=== PATIENT | male | born 1960 | race Caucasian/White ===

== ENCOUNTER 2019-05-26 19:30 | Inpatient (IN) | payer SELFPAY ==
[~2019-05-26] VITALS: Ht 170.2 cm; Wt 68.2 kg
[2019-05-26 19:54] LABS: GLUCOSE,POINT OF CARE 189 MG/DL (70-110)
[2019-05-27 00:56] LABS: APPEARANCE,URINE CLEAR (CLEAR); BILIRUBIN,URINE NEGATIVE (NEGATIVE); GLUCOSE, URINE (UA) >=1000 mg/dL (NEGATIVE); KETONES,URINE 15 mg/dL (NEGATIVE); LEUKOCYTE ESTERASE ,URINE NEGATIVE (NEGATIVE); NITRATE,URINE NEGATIVE (NEGATIVE); OCCULT BLOOD,URINE NEGATIVE (NEGATIVE); PH,URINE 5.5 (5.0-8.0); PROTEIN,URINE NEGATIVE (NEGATIVE); UROBILINOGEN,URINE 0.2 mg/dL (<=1.0)
[2019-05-27 01:03] LABS: BACTERIA,URINE None Seen /HPF (None Seen); RBC,URINE 0-2 /HPF (0-2); SQUAMOUS EPITHELIAL CELL,UR Rare /LPF (None Seen); WBC,URINE 0-2 /HPF (0-5)
[2019-05-27] MEDS ORDERED: ACETAMINOPHEN 500 MG TABLET PO ONE (01:15)
[2019-05-27 01:33] LABS: BASOPHILS % (AUTO) 0.9 % (0.0-2.0); EOSINOPHILS % (AUTO) 0.2 % (1.0-6.0); HEMATOCRIT 39.6 % (41-53); HEMOGLOBIN 13.6 g/dL (13.5-17.5); LYMPHOCYTES # (AUTO) 1.4 K/uL (1.0-4.8); LYMPHOCYTES % (AUTO) 28.8 % (22.0-44.0); MEAN CORPUSCULAR HEMOGLOBIN 29.2 pg (26.0-34.0); MEAN CORPUSCULAR HGB CONC 34.4 G/dL (31.0-37.0); MEAN CORPUSCULAR VOLUME 85 fL (80-100); MONOCYTES # (AUTO) 0.8 K/uL (0.1-1.0); MONOCYTES % (AUTO) 15.6 % (2.0-9.0); NEUTROPHILS # (AUTO) 2.7 K/uL (1.8-7.7); NEUTROPHILS % (AUTO) 54.5 % (40.0-70.0); PLATELET COUNT (AUTO) 245 K/uL (150-450); RED BLOOD CELL COUNT(AUTO) 4.66 MIL/uL (4.50-5.90); RED CELL DISTRIBUTION WIDTH 13.7 % (11.5-14.5)
[2019-05-27] MEDS ORDERED: IOVERSOL 350 MG/ML 100 ML VIAL ONE (01:38)
[2019-05-27] MEDS ORDERED: SODIUM CHLORIDE 0.9% 100 ML ONE (01:38)
[2019-05-27 01:42] LABS: ANION GAP 8 mmol/L (8-16); CALCIUM, TOTAL 8.7 mg/dL (8.8-10.5); CARBON DIOXIDE 27 mmol/L (22-29); CHLORIDE 98 mmol/L (98-107); CREATININE 0.82 mg/dL (0.60-1.30); GLOMERULAR FILTR. RATE CALC > 60 mL/min (>60); GLUCOSE,RANDOM 156 mg/dL (70-110); POTASSIUM 3.4 mmol/L (3.5-5.1); SODIUM SERUM 133 mmol/L (136-145); UREA NITROGEN, BLOOD 14 mg/dL (7-18)
[2019-05-27] MEDS ORDERED: ONDANSETRON HCL 4 MG/2 ML VIAL IVP ONE (01:45)
[2019-05-27] MEDS ORDERED: SODIUM CHLORIDE 0.9% 1,000 ML IV ONE (01:45)
[2019-05-27 02:10] LABS: ALANINE AMINOTRANSFERASE 31 U/L (12-78); ALBUMIN 3.4 g/dL (3.4-5.0); ALKALINE PHOSPHATASE 106 U/L (46-116); ASPARTATE AMINOTRANSFERASE 27 U/L (15-37); BILIRUBIN,TOTAL 0.5 mg/dL (0.1-1.0); CREATINE KINASE, TOTAL ONLY 156 U/L (39-308); TOTAL PROTEIN, SERUM 6.8 g/dL (6.4-8.2)
[2019-05-27] MEDS ORDERED: MetroNIDAZOLE 500 MG/NACL 100 ML IV ONE (03:30)
[2019-05-27] MEDS ORDERED: CefTRIAXone 1 GM/DEXTROSE 50 ML IV ONE (03:30)
[2019-05-27] MEDS ORDERED: 0.9% SODIUM CHLORIDE 10 ML SYRINGE IVP PRN (04:15)
[2019-05-27] MEDS ORDERED: ONDANSETRON HCL 4 MG/2 ML VIAL IVP PRN ×2 (04:15→19:30)
[2019-05-27] MEDS ORDERED: ACETAMINOPHEN 325 MG TABLET PO PRN (04:15)
[2019-05-27 10:30] LABS: GLUCOSE,POINT OF CARE 118 MG/DL (70-110)
[2019-05-27] MEDS ORDERED: GABA-533 PO (14:14)
[2019-05-27] MEDS ORDERED: LORazepam 2 MG TABLET PO ONE (14:15)
[2019-05-27] MEDS ORDERED: GABAPENTIN 400 MG CAPSULE PO ONE (14:30)
[2019-05-27] MEDS ORDERED: QUET25TA PO (14:32)
[2019-05-27 17:59] VITALS: BP 125/79
[2019-05-27] MEDS ORDERED: INFLUENZA VIRUS VACCINE QVS 2019-20 (3YR+)/PF 60 MCG/0.5 ML SYRINGE IM ONE (19:00)
[2019-05-27] MEDS ORDERED: PNEUMOCOCCAL VACCINE POLYVALENT 0.5 ML VIAL [PPSV23] IM ONE (19:00)
[2019-05-27] MEDS ORDERED: DEXTROSE 5%-0.45% SODIUM CHL 1,000 ML IV SCH (19:30)
[2019-05-27 19:50] VITALS: BP 132/88
[2019-05-27] MEDS: MetroNIDAZOLE 500 MG/NACL 100 ML IV SCH (20:47)
[2019-05-27 23:15] VITALS: BP 121/63
[2019-05-28] MEDS: MORPHINE SULFATE 2 MG/ML SYRINGE IVP PRN ×5 (00:02→19:54)
[2019-05-28 00:41] LABS: AMPHET/METH SCREEN,URINE POSITIVE (NEGATIVE); BARBITURATE SCREEN, URINE NEGATIVE (NEGATIVE); BENZODIAZEPINES SCREEN,URINE NEGATIVE (NEGATIVE); CANNABINOID SCREEN,URINE POSITIVE (NEGATIVE); COCAINE SCREEN,URINE NEGATIVE (NEGATIVE); METHADONE SCREEN, URINE NEGATIVE (NEGATIVE); OPIATE SCREEN,URINE NEGATIVE (NEGATIVE)
[2019-05-28 00:42] LABS: PHENCYCLIDINE SCREEN,URINE NEGATIVE (NEGATIVE)
[2019-05-28] MEDS: LORazepam 2 MG/ML VIAL IVP PRN (02:33)
[2019-05-28] MEDS: MetroNIDAZOLE 500 MG/NACL 100 ML IV SCH ×2 (03:42→11:10)
[2019-05-28 05:00] VITALS: BP 124/80
[2019-05-28 05:44] LABS: GLUCOMETER DEV NAME(LOC) 4E.2; GLUCOSE,POINT OF CARE 141 MG/DL (70-110)
[2019-05-28] MEDS ORDERED: CefTRIAXone 1 GM/DEXTROSE 50 ML IV SCH (06:00)
[2019-05-28 06:27] LABS: EOSINOPHILS % (AUTO) 1.2 % (1.0-6.0); HEMATOCRIT 38.5 % (41-53); HEMOGLOBIN 13.3 g/dL (13.5-17.5); LYMPHOCYTES # (AUTO) 2.7 K/uL (1.0-4.8); MEAN CORPUSCULAR HEMOGLOBIN 29.6 pg (26.0-34.0); MEAN CORPUSCULAR HGB CONC 34.5 G/dL (31.0-37.0); MEAN CORPUSCULAR VOLUME 86 fL (80-100); MONOCYTES # (AUTO) 0.6 K/uL (0.1-1.0); MONOCYTES % (AUTO) 12.4 % (2.0-9.0); NEUTROPHILS # (AUTO) 1.4 K/uL (1.8-7.7); NEUTROPHILS % (AUTO) 29.4 % (40.0-70.0); RED BLOOD CELL COUNT(AUTO) 4.48 MIL/uL (4.50-5.90); RED CELL DISTRIBUTION WIDTH 13.7 % (11.5-14.5)
[2019-05-28 06:37] LABS: ALANINE AMINOTRANSFERASE 23 U/L (12-78); ALKALINE PHOSPHATASE 83 U/L (46-116); ANION GAP 4 mmol/L (8-16); ASPARTATE AMINOTRANSFERASE 23 U/L (15-37); BILIRUBIN,TOTAL 0.3 mg/dL (0.1-1.0); CALCIUM, TOTAL 8.5 mg/dL (8.8-10.5); CARBON DIOXIDE 29 mmol/L (22-29); CHLORIDE 104 mmol/L (98-107); CREATININE 0.77 mg/dL (0.60-1.30); GLOMERULAR FILTR. RATE CALC > 60 mL/min (>60); GLUCOSE,RANDOM 153 mg/dL (70-110); POTASSIUM 3.7 mmol/L (3.5-5.1); SODIUM SERUM 137 mmol/L (136-145); UREA NITROGEN, BLOOD 4 mg/dL (7-18)
[2019-05-28 06:55] LABS: PLATELET COUNT (AUTO) 193 K/uL (150-450)
[2019-05-28 08:00] VITALS: BP 124/84
[2019-05-28 09:04] VITALS: BP 110/56
[2019-05-28] MEDS ORDERED: RINGERS SOLUTION,LACTATED 1,000 ML IV ONE ×3 (09:59→13:53)
[2019-05-28] MEDS ORDERED: BUPIVACAINE 0.25%/EPI 1:200,000/PF 10 ML VIAL ONE (11:22)
[2019-05-28] MEDS ORDERED: IPRATROPIUM BROMIDE 0.5 MG/2.5 ML NEB SOLUTION NEB PRN (11:45)
[2019-05-28] MEDS ORDERED: ALBUTEROL SULFATE 2.5 MG/0.5 ML NEB SOLUTION NEB PRN (11:45)
[2019-05-28] MEDS ORDERED: BISACODYL 10 MG RECTAL RECTAL SUPPOSITORY PR PRN (11:45)
[2019-05-28] MEDS ORDERED: ONDANSETRON HCL 4 MG/2 ML VIAL IVP PRN (11:45)
[2019-05-28] MEDS ORDERED: ZOLPIDEM TARTRATE 5 MG TABLET PO PRN (11:45)
[2019-05-28] MEDS ORDERED: ACETAMINOPHEN 325 MG TABLET PO PRN (11:45)
[2019-05-28] MEDS ORDERED: MAGNESIUM HYDROXIDE SUSPENSION 30 ML UDCUP PO PRN (11:45)
[2019-05-28 12:31] LABS: HEMOGLOBIN A1C 9.3 % (4.5-6.2)
[2019-05-28] MEDS ORDERED: HYDROCODONE/ACETAMINOPHEN 5-325 MG TABLET PO PRN (15:00)
[2019-05-28 15:47] VITALS: BP 141/87
[2019-05-28] MEDS: IBUPROFEN 600 MG TABLET PO SCH (15:56)
[2019-05-28] MEDS: HEPARIN SODIUM,PORCINE 5,000 UNITS/ML VIAL SQ SCH ×2 (16:06→23:35)
[2019-05-28] MEDS: GABAPENTIN 400 MG CAPSULE PO SCH ×2 (16:07→23:35)
[2019-05-28 19:22] VITALS: BP 107/60
[2019-05-28 23:30] VITALS: BP 106/60
[2019-05-28] MEDS: DOCUSATE SODIUM 100 MG CAPSULE PO SCH (23:35)
[2019-05-29] MEDS: GABAPENTIN 400 MG CAPSULE PO SCH ×2 (00:05→15:41)
[2019-05-29] MEDS: LORazepam 2 MG/ML VIAL IVP PRN (00:05)
[2019-05-29] MEDS ORDERED: FentaNYL CITRATE-PF 100 MCG/2 ML VIAL IVP ONE (01:10)
[2019-05-29] MEDS ORDERED: MIDAZOLAM HCL 2 MG/2 ML VIAL IVP ONE (01:10)
[2019-05-29] MEDS ORDERED: KETOROLAC TROMETHAMINE 60 MG/2 ML VIAL IM ONE (01:10)
[2019-05-29] MEDS ORDERED: LIDOCAINE 1% 10 ML VIAL IM ONE (01:10)
[2019-05-29] MEDS ORDERED: 0.9% SODIUM CHLORIDE 10 ML VIAL IVP ONE (01:10)
[2019-05-29] MEDS ORDERED: ONDANSETRON HCL 4 MG/2 ML VIAL IVP ONE (01:10)
[2019-05-29] MEDS ORDERED: PROPOFOL 1% 20 ML VIAL IVP ONE (01:10)
[2019-05-29] MEDS ORDERED: SUCCINYLCHOLINE CHLORIDE 20 MG/ML 10 ML VIAL IVP ONE (01:10)
[2019-05-29] MEDS ORDERED: HYDROmorphone 2 MG/ML SYRINGE IVP ONE (01:10)
[2019-05-29] MEDS ORDERED: EPHEDrine SULFATE 50 MG/ML VIAL IM ONE (01:10)
[2019-05-29 03:52] LABS: GLUCOMETER DEV NAME(LOC) 4E.2; GLUCOSE,POINT OF CARE 180 MG/DL (70-110)
[2019-05-29 06:40] VITALS: BP 143/82
[2019-05-29] MEDS: MORPHINE SULFATE 2 MG/ML SYRINGE IVP PRN (06:40)
[2019-05-29 08:18] VITALS: BP 134/74
[2019-05-29] MEDS: DOCUSATE SODIUM 100 MG CAPSULE PO SCH (08:41)
[2019-05-29] MEDS ORDERED: QUEtiapine FUMARATE 100 MG TABLET PO SCH (09:00)
[2019-05-29] MEDS ORDERED: QUET100T33 PO (11:22)
[2019-05-29] MEDS ORDERED: IBUP-2070 PO (11:22)
[2019-05-29] MEDS ORDERED: DOCU-275 PO (11:22)
[2019-05-29] MEDS ORDERED: METF-960 PO (11:22)
[2019-05-29] MEDS ORDERED: GABA-533 PO (11:22)
[2019-05-29] MEDS ORDERED: HYDR-4061 PO (11:22)
[2019-05-29] MEDS: HEPARIN SODIUM,PORCINE 5,000 UNITS/ML VIAL SQ SCH ×2 (12:20→15:41)
[2019-05-29] MEDS: IBUPROFEN 600 MG TABLET PO SCH ×2 (14:35→18:06)
[2019-05-29 20:34] LABS: GLUCOMETER DEV NAME(LOC) 4E.2; GLUCOSE,POINT OF CARE 183 MG/DL (70-110)
[2019-05-29 20:35] LABS: GLUCOMETER DEV NAME(LOC) 4E.2; GLUCOSE,POINT OF CARE 235 MG/DL (70-110)
[2019-05-30 06:00] LABS: GLUCOMETER DEV NAME(LOC) 6N.2; GLUCOSE,POINT OF CARE 259 MG/DL (70-110)
== END 2019-05-29 18:30 | disposition other institution (70) | DRG 351 ==
LOC: EMS 19:31 → 6N 05-27 17:30
PROVIDERS: ADMIT Hospitalist; ATTEND Hospitalist
PROC: 0YU50JZ Supplement Right Inguinal Region with Synthetic Substitute, Open Approach (ICD-10-PCS; principal; 2019-05-28 12:00)
DX: K40.30 Unilateral inguinal hernia, with obstruction, without gangrene, not specified as recurrent (principal); K56.600 Partial intestinal obstruction, unspecified as to cause; D64.9 Anemia, unspecified; E11.9 Type 2 diabetes mellitus without complications; F15.10 Other stimulant abuse, uncomplicated; F25.9 Schizoaffective disorder, unspecified; G89.29 Other chronic pain; F17.210 Nicotine dependence, cigarettes, uncomplicated; F12.90 Cannabis use, unspecified, uncomplicated; F32.9 Major depressive disorder, single episode, unspecified; F41.9 Anxiety disorder, unspecified; R63.0 Anorexia; R45.1 Restlessness and agitation; I10 Essential (primary) hypertension; K52.9 Noninfective gastroenteritis and colitis, unspecified; Z59.0 Homelessness; Z79.899 Other long term (current) drug therapy; Z68.23 Body mass index [BMI] 23.0-23.9, adult; Z88.8 Allergy status to other drugs, medicaments and biological substances
CPT/HCPCS: 74177; 83036; 83605; 83735; 87040; 87081; 88302; J0330; J0696; J1170; J1644; J1885; J2060; J2250; J2270; J2405; J2704; J3010; J3490; J7030; J7050; J7120

== ENCOUNTER 2019-11-24 15:25 | Inpatient (IN) | payer MEDICAID ==
[~2019-11-24] VITALS: Ht 172.7 cm; Wt 72.7 kg
[~2019-11-24 15:25] MED LIST: DOCU-275 PO; GABA-1201 PO; GABA-533 PO; IBUP-2070 PO; METF-960 PO; QUET100T33 PO; QUET25TA PO
[2019-11-24] MEDS ORDERED: ZIPRASIDONE MESYLATE 20 MG/VIAL IM ONE (16:30)
[2019-11-24] MEDS ORDERED: LORazepam 2 MG/ML VIAL IM ONE ×2 (16:30→18:30)
[2019-11-24] MEDS ORDERED: DiphenhydrAMINE HCL 50 MG/ML VIAL IM ONE (16:30)
[2019-11-24] MEDS: LORazepam 2 MG/ML VIAL IM ONE ×2 (16:42→17:06)
[2019-11-24] MEDS: DiphenhydrAMINE HCL 50 MG/ML VIAL IM ONE ×2 (16:43→17:06)
[2019-11-24 18:27] LABS: BASOPHILS % (AUTO) 0.9 % (0.0-2.0); EOSINOPHILS % (AUTO) 0.2 % (1.0-6.0); HEMATOCRIT 50.3 % (41-53); HEMOGLOBIN 16.8 g/dL (13.5-17.5); LYMPHOCYTES # (AUTO) 3.3 K/uL (1.0-4.8); LYMPHOCYTES % (AUTO) 38.7 % (22.0-44.0); MEAN CORPUSCULAR HEMOGLOBIN 28.3 pg (26.0-34.0); MEAN CORPUSCULAR HGB CONC 33.4 G/dL (31.0-37.0); MEAN CORPUSCULAR VOLUME 85 fL (80-100); MONOCYTES # (AUTO) 0.4 K/uL (0.1-1.0); MONOCYTES % (AUTO) 4.6 % (2.0-9.0); NEUTROPHILS # (AUTO) 4.8 K/uL (1.8-7.7); NEUTROPHILS % (AUTO) 55.6 % (40.0-70.0); PLATELET COUNT (AUTO) 322 K/uL (150-450); RED BLOOD CELL COUNT(AUTO) 5.93 MIL/uL (4.50-5.90)
[2019-11-24 18:41] LABS: ALKALINE PHOSPHATASE 128 U/L (46-116); ANION GAP 20 mmol/L (8-16); BILIRUBIN,TOTAL 0.3 mg/dL (0.1-1.0); CALCIUM, TOTAL 9.4 mg/dL (8.8-10.5); CARBON DIOXIDE 20 mmol/L (22-29); CHLORIDE 100 mmol/L (98-107); CREATININE 1.03 mg/dL (0.60-1.30); GLOMERULAR FILTR. RATE CALC > 60 mL/min (>60); POTASSIUM 3.3 mmol/L (3.5-5.1); SODIUM SERUM 140 mmol/L (136-145); UREA NITROGEN, BLOOD 12 mg/dL (7-18)
[2019-11-24 18:42] LABS: ALANINE AMINOTRANSFERASE 33 U/L (12-78); ALBUMIN 3.9 g/dL (3.4-5.0); ASPARTATE AMINOTRANSFERASE 26 U/L (15-37)
[2019-11-24 18:46] LABS: GLUCOSE,RANDOM 433 mg/dL (70-110)
[2019-11-24] MEDS ORDERED: ChlorproMAZINE HCL 25 MG/ML 2 ML AMP IM ONE (19:15)
[2019-11-24] MEDS ORDERED: SODIUM CHLORIDE 0.45% 1,000 ML IV PRN (19:56)
[2019-11-24] MEDS ORDERED: POTASSIUM CHL 20 MEQ/0.45% NS 1,000 ML IV PRN (19:56)
[2019-11-24] MEDS ORDERED: DEXTROSE 5%-0.45% SODIUM CHL 1,000 ML IV PRN (19:56)
[2019-11-24] MEDS ORDERED: SODIUM CHLORIDE 0.9% 1,000 ML IV SCH (19:56)
[2019-11-24] MEDS ORDERED: INSULIN REGULAR, HUMAN 100 UNITS in SODIUM CHLORIDE 0.9% 99 ML IV PRN ×2 (19:56)
[2019-11-24] MEDS ORDERED: POTASSIUM CHLORIDE 40 MEQ in SODIUM CHLORIDE 0.45% 1,000 ML IV PRN (19:56)
[2019-11-24] MEDS ORDERED: DEXTROSE 50%-WATER 25 GM/50 ML SYRINGE IVP PRN (20:00)
[2019-11-24] MEDS ORDERED: SODIUM CHLORIDE 0.9% 2,000 ML IV ONE (20:00)
[2019-11-24] MEDS ORDERED: INSULIN REGULAR, HUMAN 100 UNITS/ML IVP ONE (20:00)
[2019-11-24] MEDS ORDERED: INSULIN REGULAR, HUMAN 100 UNITS/ML IVP PRN (20:00)
[2019-11-24 20:46] LABS: GLUCOSE,POINT OF CARE 332 MG/DL (70-110)
[2019-11-24 21:24] LABS: AMPHET/METH SCREEN,URINE NEGATIVE (NEGATIVE); BARBITURATE SCREEN, URINE NEGATIVE (NEGATIVE); BENZODIAZEPINES SCREEN,URINE POSITIVE (NEGATIVE); CANNABINOID SCREEN,URINE POSITIVE (NEGATIVE); COCAINE SCREEN,URINE NEGATIVE (NEGATIVE); METHADONE SCREEN, URINE NEGATIVE (NEGATIVE); OPIATE SCREEN,URINE POSITIVE (NEGATIVE)
[2019-11-24 21:25] LABS: PHENCYCLIDINE SCREEN,URINE NEGATIVE (NEGATIVE)
[2019-11-24 21:55] LABS: ANION GAP 13 mmol/L (8-16); CALCIUM, TOTAL 9.2 mg/dL (8.8-10.5); CARBON DIOXIDE 25 mmol/L (22-29); CHLORIDE 102 mmol/L (98-107); GLOMERULAR FILTR. RATE CALC > 60 mL/min (>60); GLUCOSE,RANDOM 311 mg/dL (70-110); POTASSIUM 3.4 mmol/L (3.5-5.1); SODIUM SERUM 140 mmol/L (136-145); UREA NITROGEN, BLOOD 11 mg/dL (7-18)
[2019-11-24] MEDS ORDERED: ONDANSETRON HCL 4 MG/2 ML VIAL IVP PRN ×2 (22:15→23:45)
[2019-11-24] MEDS ORDERED: ACETAMINOPHEN 325 MG TABLET PO PRN ×2 (22:15→23:45)
[2019-11-24 22:16] LABS: LACTIC ACID 3.2 mmol/L (0.4-2.0)
[2019-11-24 22:19] LABS: CREATINE KINASE, TOTAL ONLY 827 U/L (39-308); LIPASE 60 U/L (73-393)
[2019-11-24 22:36] LABS: ACETONE,BLOOD NEGATIVE (NEGATIVE)
[2019-11-24 23:25] LABS: GLUCOSE,POINT OF CARE 280 MG/DL (70-110)
[2019-11-24] MEDS ORDERED: HYDROCODONE/ACETAMINOPHEN 5-325 MG TABLET PO PRN (23:45)
[2019-11-24] MEDS ORDERED: ZOLPIDEM TARTRATE 5 MG TABLET PO PRN (23:45)
[2019-11-24] MEDS ORDERED: MAGNESIUM HYDROXIDE SUSPENSION 30 ML UDCUP PO PRN (23:45)
[2019-11-24] MEDS ORDERED: IPRATROPIUM BROMIDE 0.5 MG/2.5 ML NEB SOLUTION NEB PRN (23:45)
[2019-11-24] MEDS ORDERED: ALBUTEROL SULFATE 2.5 MG/0.5 ML NEB SOLUTION NEB PRN (23:45)
[2019-11-24] MEDS ORDERED: MORPHINE SULFATE 2 MG/ML SYRINGE IVP PRN (23:45)
[2019-11-24] MEDS ORDERED: GABAPENTIN 400 MG CAPSULE PO SCH (23:45)
[2019-11-24] MEDS ORDERED: BISACODYL 10 MG RECTAL RECTAL SUPPOSITORY PR PRN (23:45)
[2019-11-25 00:51] LABS: GLUCOSE,POINT OF CARE 210 MG/DL (70-110)
[2019-11-25] MEDS ORDERED: SODIUM CHLORIDE 0.9% 1,000 ML IV ONE (01:02)
[2019-11-25 03:01] LABS: ANION GAP 10 mmol/L (8-16); CARBON DIOXIDE 25 mmol/L (22-29); CHLORIDE 110 mmol/L (98-107); CREATININE 0.91 mg/dL (0.60-1.30); GLOMERULAR FILTR. RATE CALC > 60 mL/min (>60); GLUCOSE,RANDOM 172 mg/dL (70-110); POTASSIUM 3.4 mmol/L (3.5-5.1); SODIUM SERUM 145 mmol/L (136-145); UREA NITROGEN, BLOOD 10 mg/dL (7-18)
[2019-11-25] MEDS ORDERED: DEXTROSE 50%-WATER 25 GM/50 ML SYRINGE IVP PRN (03:30)
[2019-11-25] MEDS: INSULIN LISPRO 100 UNITS/ML SQ PRN ×5 (03:43→21:14)
[2019-11-25 03:52] LABS: GLUCOSE,POINT OF CARE 174 MG/DL (70-110)
[2019-11-25 08:17] LABS: GLUCOSE,POINT OF CARE 256 MG/DL (70-110)
[2019-11-25] MEDS: HEPARIN SODIUM,PORCINE 5,000 UNITS/ML VIAL SQ SCH ×3 (08:19→17:39)
[2019-11-25] MEDS: IBUPROFEN 600 MG TABLET PO SCH ×4 (08:20→18:35)
[2019-11-25] MEDS ORDERED: DOCUSATE SODIUM 100 MG CAPSULE PO SCH (09:00)
[2019-11-25 09:03] VITALS: BP 151/95
[2019-11-25 10:08] LABS: ALANINE AMINOTRANSFERASE 32 U/L (12-78); ALBUMIN 3.1 g/dL (3.4-5.0); ALKALINE PHOSPHATASE 99 U/L (46-116); ANION GAP 9 mmol/L (8-16); ASPARTATE AMINOTRANSFERASE 45 U/L (15-37); BILIRUBIN,TOTAL 0.5 mg/dL (0.1-1.0); CALCIUM, TOTAL 8.2 mg/dL (8.8-10.5); CARBON DIOXIDE 26 mmol/L (22-29); CHLORIDE 108 mmol/L (98-107); CREATININE 0.88 mg/dL (0.60-1.30); GLOMERULAR FILTR. RATE CALC > 60 mL/min (>60); GLUCOSE,RANDOM 214 mg/dL (70-110); PHOSPHORUS 2.2 mg/dL (2.5-4.9); POTASSIUM 3.5 mmol/L (3.5-5.1); SODIUM SERUM 143 mmol/L (136-145); TOTAL PROTEIN, SERUM 6.1 g/dL (6.4-8.2); UREA NITROGEN, BLOOD 11 mg/dL (7-18)
[2019-11-25] MEDS: GABAPENTIN 400 MG CAPSULE PO SCH ×3 (10:19→17:39)
[2019-11-25] MEDS: QUEtiapine FUMARATE 100 MG TABLET PO SCH (10:19)
[2019-11-25] MEDS: QUEtiapine FUMARATE 25 MG TABLET PO SCH (10:20)
[2019-11-25] MEDS: DOCUSATE SODIUM 100 MG CAPSULE PO SCH ×2 (10:20→20:53)
[2019-11-25 11:36] VITALS: BP 144/95
[2019-11-25 15:18] LABS: ANION GAP 9 mmol/L (8-16); CALCIUM, TOTAL 8.4 mg/dL (8.8-10.5); CARBON DIOXIDE 25 mmol/L (22-29); CHLORIDE 107 mmol/L (98-107); CREATININE 0.89 mg/dL (0.60-1.30); GLOMERULAR FILTR. RATE CALC > 60 mL/min (>60); GLUCOSE,RANDOM 313 mg/dL (70-110); SODIUM SERUM 141 mmol/L (136-145); UREA NITROGEN, BLOOD 12 mg/dL (7-18)
[2019-11-25 15:22] VITALS: BP 139/86
[2019-11-25 19:29] LABS: ANION GAP 9 mmol/L (8-16); CALCIUM, TOTAL 8.4 mg/dL (8.8-10.5); CARBON DIOXIDE 26 mmol/L (22-29); CHLORIDE 106 mmol/L (98-107); CREATININE 0.95 mg/dL (0.60-1.30); GLOMERULAR FILTR. RATE CALC > 60 mL/min (>60); GLUCOSE,RANDOM 310 mg/dL (70-110); POTASSIUM 3.5 mmol/L (3.5-5.1); SODIUM SERUM 141 mmol/L (136-145); UREA NITROGEN, BLOOD 13 mg/dL (7-18)
[2019-11-25 21:10] VITALS: BP 143/80
[2019-11-26] MEDS: IBUPROFEN 600 MG TABLET PO SCH ×4 (00:44→17:14)
[2019-11-26] MEDS: GABAPENTIN 400 MG CAPSULE PO SCH ×3 (00:44→17:14)
[2019-11-26] MEDS: HEPARIN SODIUM,PORCINE 5,000 UNITS/ML VIAL SQ SCH ×3 (00:44→17:14)
[2019-11-26 00:52] VITALS: BP 125/84
[2019-11-26 04:01] VITALS: BP 120/75
[2019-11-26] MEDS: INSULIN LISPRO 100 UNITS/ML SQ PRN ×4 (06:19→21:06)
[2019-11-26 08:07] VITALS: BP 131/79
[2019-11-26] MEDS: QUEtiapine FUMARATE 100 MG TABLET PO SCH (08:11)
[2019-11-26] MEDS: QUEtiapine FUMARATE 25 MG TABLET PO SCH (08:11)
[2019-11-26] MEDS: DOCUSATE SODIUM 100 MG CAPSULE PO SCH ×2 (08:11→20:48)
[2019-11-26 08:30] LABS: ANION GAP 11 mmol/L (8-16); CALCIUM, TOTAL 8.3 mg/dL (8.8-10.5); CARBON DIOXIDE 24 mmol/L (22-29); CHLORIDE 102 mmol/L (98-107); CREATININE 0.91 mg/dL (0.60-1.30); GLOMERULAR FILTR. RATE CALC > 60 mL/min (>60); GLUCOSE,RANDOM 314 mg/dL (70-110); POTASSIUM 3.7 mmol/L (3.5-5.1); SODIUM SERUM 137 mmol/L (136-145); UREA NITROGEN, BLOOD 16 mg/dL (7-18)
[2019-11-26 10:21] LABS: ANION GAP 8 mmol/L (8-16); CALCIUM, TOTAL 8.1 mg/dL (8.8-10.5); CARBON DIOXIDE 26 mmol/L (22-29); CHLORIDE 104 mmol/L (98-107); CREATININE 0.92 mg/dL (0.60-1.30); GLOMERULAR FILTR. RATE CALC > 60 mL/min (>60); GLUCOSE,RANDOM 337 mg/dL (70-110); POTASSIUM 4.1 mmol/L (3.5-5.1); SODIUM SERUM 138 mmol/L (136-145); UREA NITROGEN, BLOOD 17 mg/dL (7-18)
[2019-11-26 12:38] VITALS: BP 168/90
[2019-11-26 12:41] LABS: GLUCOMETER DEV NAME(LOC) 5S.1; GLUCOSE,POINT OF CARE 290 MG/DL (70-110)
[2019-11-26 12:41] LABS: GLUCOMETER DEV NAME(LOC) 5S.1; GLUCOSE,POINT OF CARE 259 MG/DL (70-110)
[2019-11-26 12:41] LABS: GLUCOMETER DEV NAME(LOC) 5S.1; GLUCOSE,POINT OF CARE 191 MG/DL (70-110)
[2019-11-26 12:41] LABS: GLUCOMETER DEV NAME(LOC) 5S.1; GLUCOSE,POINT OF CARE 195 MG/DL (70-110)
[2019-11-26 14:09] LABS: ANION GAP 8 mmol/L (8-16); CARBON DIOXIDE 26 mmol/L (22-29); CHLORIDE 106 mmol/L (98-107); CREATININE 0.79 mg/dL (0.60-1.30); GLOMERULAR FILTR. RATE CALC > 60 mL/min (>60); GLUCOSE,RANDOM 311 mg/dL (70-110); POTASSIUM 4.2 mmol/L (3.5-5.1); SODIUM SERUM 140 mmol/L (136-145); UREA NITROGEN, BLOOD 14 mg/dL (7-18)
[2019-11-26 16:10] VITALS: BP 154/92
[2019-11-26 17:04] LABS: ANION GAP 8 mmol/L (8-16); CALCIUM, TOTAL 8.3 mg/dL (8.8-10.5); CARBON DIOXIDE 25 mmol/L (22-29); CHLORIDE 103 mmol/L (98-107); CREATININE 0.88 mg/dL (0.60-1.30); GLOMERULAR FILTR. RATE CALC > 60 mL/min (>60); GLUCOSE,RANDOM 164 mg/dL (70-110); POTASSIUM 3.9 mmol/L (3.5-5.1); SODIUM SERUM 136 mmol/L (136-145); UREA NITROGEN, BLOOD 17 mg/dL (7-18)
[2019-11-26 17:33] LABS: GLUCOMETER DEV NAME(LOC) 5S.2A; GLUCOSE,POINT OF CARE 207 MG/DL (70-110)
[2019-11-26 17:34] LABS: GLUCOMETER DEV NAME(LOC) 5S.2A; GLUCOSE,POINT OF CARE 154 MG/DL (70-110)
[2019-11-26 20:21] VITALS: BP 134/74
[2019-11-27 03:42] LABS: GLUCOMETER DEV NAME(LOC) 5S.1; GLUCOSE,POINT OF CARE 159 MG/DL (70-110)
[2019-11-27 04:06] VITALS: BP 157/93
[2019-11-27] MEDS: INSULIN LISPRO 100 UNITS/ML SQ PRN ×2 (06:12→14:10)
[2019-11-27] MEDS: IBUPROFEN 600 MG TABLET PO SCH ×4 (06:13→18:00)
[2019-11-27 07:58] LABS: ANION GAP 6 mmol/L (8-16); CALCIUM, TOTAL 8.2 mg/dL (8.8-10.5); CARBON DIOXIDE 28 mmol/L (22-29); CHLORIDE 106 mmol/L (98-107); CREATININE 0.77 mg/dL (0.60-1.30); GLOMERULAR FILTR. RATE CALC > 60 mL/min (>60); GLUCOSE,RANDOM 238 mg/dL (70-110); POTASSIUM 4.2 mmol/L (3.5-5.1); SODIUM SERUM 140 mmol/L (136-145); UREA NITROGEN, BLOOD 18 mg/dL (7-18)
[2019-11-27 08:28] VITALS: BP 157/88
[2019-11-27] MEDS: DOCUSATE SODIUM 100 MG CAPSULE PO SCH (09:00)
[2019-11-27 09:08] LABS: GLUCOMETER DEV NAME(LOC) 5S.1; GLUCOSE,POINT OF CARE 244 MG/DL (70-110)
[2019-11-27] MEDS: QUEtiapine FUMARATE 25 MG TABLET PO SCH (09:24)
[2019-11-27] MEDS: GABAPENTIN 400 MG CAPSULE PO SCH ×3 (09:24→17:06)
[2019-11-27] MEDS: HEPARIN SODIUM,PORCINE 5,000 UNITS/ML VIAL SQ SCH ×3 (09:24→16:00)
[2019-11-27] MEDS: QUEtiapine FUMARATE 100 MG TABLET PO SCH (09:24)
[2019-11-27 11:28] VITALS: BP 172/92
[2019-11-27 12:39] LABS: GLUCOMETER DEV NAME(LOC) 5S.1; GLUCOSE,POINT OF CARE 274 MG/DL (70-110)
[2019-11-27 16:37] VITALS: BP 139/81
[2019-11-27 20:10] VITALS: BP 137/74
== END 2019-11-27 21:40 | disposition left against medical advice (07) | DRG 420 ==
LOC: EMS 15:26 → 5N 23:41
PROVIDERS: ADMIT Hospitalist; ATTEND Hospitalist
DX: E11.10 Type 2 diabetes mellitus with ketoacidosis without coma (principal); G93.40 Encephalopathy, unspecified; R45.851 Suicidal ideations; E87.6 Hypokalemia; F15.90 Other stimulant use, unspecified, uncomplicated; F19.10 Other psychoactive substance abuse, uncomplicated; F41.9 Anxiety disorder, unspecified; F32.9 Major depressive disorder, single episode, unspecified; I10 Essential (primary) hypertension; F12.90 Cannabis use, unspecified, uncomplicated; Z88.8 Allergy status to other drugs, medicaments and biological substances; F17.210 Nicotine dependence, cigarettes, uncomplicated; S61.512A Laceration without foreign body of left wrist, initial encounter; S61.511A Laceration without foreign body of right wrist, initial encounter; X58.XXXA Exposure to other specified factors, initial encounter; Y93.89 Activity, other specified; Y92.89 Other specified places as the place of occurrence of the external cause; Y99.8 Other external cause status; Z53.29 Procedure and treatment not carried out because of patient's decision for other reasons
CPT/HCPCS: 70450; 83605; 83735; 84100; 93005; 99291; G0480; J1200; J1644; J1815; J2060; J3230; J3486; J7030; J7050

== ENCOUNTER 2020-01-05 11:02 | Inpatient (IN) | payer MEDICAID ==
[~2020-01-05] VITALS: Ht 170.2 cm; Wt 88.2 kg
[2020-01-05 12:18] LABS: GLUCOSE,POINT OF CARE 247 MG/DL (70-110)
[2020-01-05 12:25] LABS: BASOPHILS % (AUTO) 1.2 % (0.0-2.0); EOSINOPHILS % (AUTO) 1.2 % (1.0-6.0); HEMATOCRIT 46.4 % (41-53); HEMOGLOBIN 15.1 g/dL (13.5-17.5); LYMPHOCYTES # (AUTO) 2.6 K/uL (1.0-4.8); MEAN CORPUSCULAR HEMOGLOBIN 28.4 pg (26.0-34.0); MEAN CORPUSCULAR HGB CONC 32.6 G/dL (31.0-37.0); MEAN CORPUSCULAR VOLUME 87 fL (80-100); MONOCYTES # (AUTO) 0.4 K/uL (0.1-1.0); MONOCYTES % (AUTO) 6.2 % (2.0-9.0); NEUTROPHILS # (AUTO) 3.2 K/uL (1.8-7.7); NEUTROPHILS % (AUTO) 50.4 % (40.0-70.0); PLATELET COUNT (AUTO) 279 K/uL (150-450); RED BLOOD CELL COUNT(AUTO) 5.33 MIL/uL (4.50-5.90); RED CELL DISTRIBUTION WIDTH 14.6 % (11.5-14.5)
[2020-01-05 13:30] LABS: AMPHET/METH SCREEN,URINE NEGATIVE (NEGATIVE); BARBITURATE SCREEN, URINE NEGATIVE (NEGATIVE); BENZODIAZEPINES SCREEN,URINE NEGATIVE (NEGATIVE); CANNABINOID SCREEN,URINE POSITIVE (NEGATIVE); COCAINE SCREEN,URINE POSITIVE (NEGATIVE); METHADONE SCREEN, URINE NEGATIVE (NEGATIVE); OPIATE SCREEN,URINE POSITIVE (NEGATIVE)
[2020-01-05 13:31] LABS: PHENCYCLIDINE SCREEN,URINE NEGATIVE (NEGATIVE)
[2020-01-05 13:41] LABS: ANION GAP 9 mmol/L (8-16); CALCIUM, TOTAL 9.1 mg/dL (8.8-10.5); CARBON DIOXIDE 27 mmol/L (22-29); CHLORIDE 97 mmol/L (98-107); CREATININE 1.06 mg/dL (0.60-1.30); GLOMERULAR FILTR. RATE CALC > 60 mL/min (>60); GLUCOSE,RANDOM 271 mg/dL (70-110); POTASSIUM 3.8 mmol/L (3.5-5.1); SODIUM SERUM 133 mmol/L (136-145); UREA NITROGEN, BLOOD 16 mg/dL (7-18)
[2020-01-05 13:47] LABS: ALANINE AMINOTRANSFERASE 37 U/L (12-78); ALBUMIN 3.7 g/dL (3.4-5.0); ALKALINE PHOSPHATASE 99 U/L (46-116); ASPARTATE AMINOTRANSFERASE 21 U/L (15-37); BILIRUBIN,TOTAL 0.3 mg/dL (0.1-1.0); TOTAL PROTEIN, SERUM 7.2 g/dL (6.4-8.2)
[2020-01-05] MEDS: LORazepam 2 MG TABLET PO PRN (20:16)
[2020-01-05 20:29] VITALS: BP 148/81
[2020-01-06] MEDS ORDERED: MetFORMIN HCL 500 MG TABLET PO SCH (07:30)
[2020-01-06] MEDS ORDERED: MAGNESIUM HYDROXIDE SUSPENSION 30 ML UDCUP PO PRN (09:30)
[2020-01-06] MEDS ORDERED: DOCUSATE SODIUM 100 MG CAPSULE PO PRN (09:30)
[2020-01-06] MEDS ORDERED: ONDANSETRON HCL 4 MG TABLET PO PRN (09:30)
[2020-01-06] MEDS ORDERED: PETROLATUM,WHITE 28 GM JELLY TP PRN (09:30)
[2020-01-06] MEDS ORDERED: NICOTINE 14 MG/24 HOUR PATCH TD PRN (09:30)
[2020-01-06] MEDS ORDERED: CloNIDine HCL 0.1 MG TABLET PO PRN (09:30)
[2020-01-06] MEDS ORDERED: ALBUTEROL SULFATE HFA 90 MCG/PUFF 8 GM INHALER IH PRN (09:30)
[2020-01-06] MEDS ORDERED: GuaiFENesin/D-METHORPHAN [SUGAR-FREE] 200-20MG/10 ML SYRUP UDCUP PO PRN (09:30)
[2020-01-06 09:42] VITALS: BP 154/93
[2020-01-06] MEDS: AmLODIPine BESYLATE 5 MG TABLET PO SCH (10:02)
[2020-01-06] MEDS: NICOTINE 14 MG/24 HOUR PATCH TD SCH (10:08)
[2020-01-06] MEDS: LORazepam 2 MG TABLET PO PRN (11:45)
[2020-01-06] MEDS: GABAPENTIN 400 MG CAPSULE PO SCH ×2 (11:55→18:30)
[2020-01-06 16:00] VITALS: BP 129/55
[2020-01-06] MEDS: MetFORMIN HCL 500 MG TABLET PO SCH (18:30)
[2020-01-06] MEDS: QUEtiapine FUMARATE 100 MG TABLET PO SCH (20:28)
[2020-01-07] MEDS: MetFORMIN HCL 500 MG TABLET PO SCH ×2 (06:40→16:30)
[2020-01-07] MEDS ORDERED: GLUCAGON,HUMAN RECOMBINANT 1 MG VIAL IM PRN ×2 (07:15→07:30)
[2020-01-07] MEDS ORDERED: INSULIN LISPRO 100 UNITS/ML SQ PRN (07:15)
[2020-01-07] MEDS: LORazepam 2 MG TABLET PO PRN (08:07)
[2020-01-07] MEDS: QUEtiapine FUMARATE 100 MG TABLET PO SCH ×2 (08:07→20:28)
[2020-01-07] MEDS: AmLODIPine BESYLATE 5 MG TABLET PO SCH (08:07)
[2020-01-07] MEDS: GABAPENTIN 400 MG CAPSULE PO SCH ×4 (08:07→23:43)
[2020-01-07] MEDS: NICOTINE 14 MG/24 HOUR PATCH TD SCH (09:23)
[2020-01-07] MEDS: ZOLPIDEM TARTRATE 10 MG TABLET PO PRN (20:29)
[2020-01-08 04:41] VITALS: BP 133/81
[2020-01-08] MEDS: MetFORMIN HCL 500 MG TABLET PO SCH ×2 (06:36→17:27)
[2020-01-08] MEDS: QUEtiapine FUMARATE 100 MG TABLET PO SCH ×2 (08:06→20:48)
[2020-01-08] MEDS: AmLODIPine BESYLATE 5 MG TABLET PO SCH (08:06)
[2020-01-08] MEDS: GABAPENTIN 400 MG CAPSULE PO SCH ×2 (08:06→17:27)
[2020-01-08] MEDS: NICOTINE 14 MG/24 HOUR PATCH TD SCH (08:07)
[2020-01-08] MEDS ORDERED: DiphenhydrAMINE HCL 50 MG/ML VIAL ONE (11:37)
[2020-01-08] MEDS ORDERED: FluPHENAZine HCL 2.5 MG/ML INJ IM ONE ×2 (11:37→11:45)
[2020-01-08] MEDS ORDERED: LORazepam 2 MG/ML VIAL ONE (11:37)
[2020-01-08] MEDS ORDERED: DiphenhydrAMINE HCL 50 MG/ML VIAL IM ONE (11:45)
[2020-01-08] MEDS ORDERED: LORazepam 2 MG/ML VIAL IM ONE (11:45)
[2020-01-08 18:06] VITALS: BP 131/64
[2020-01-09] MEDS: GABAPENTIN 400 MG CAPSULE PO SCH ×3 (00:13→16:00)
[2020-01-09] MEDS: MetFORMIN HCL 500 MG TABLET PO SCH ×2 (06:37→20:02)
[2020-01-09] MEDS: NICOTINE 14 MG/24 HOUR PATCH TD SCH (09:00)
[2020-01-09] MEDS: QUEtiapine FUMARATE 100 MG TABLET PO SCH ×2 (10:28→20:03)
[2020-01-09] MEDS: LORazepam 2 MG TABLET PO PRN (10:28)
[2020-01-09] MEDS: AmLODIPine BESYLATE 5 MG TABLET PO SCH (10:28)
[2020-01-09 16:34] LABS: GLUCOMETER DEV NAME(LOC) 3E.I 2; GLUCOSE,POINT OF CARE 506 MG/DL (70-110)
[2020-01-09] MEDS ORDERED: INSULIN LISPRO 100 UNITS/ML SQ ONE (16:45)
[2020-01-09 18:31] LABS: GLUCOMETER DEV NAME(LOC) 3E.I 2; GLUCOSE,POINT OF CARE 276 MG/DL (70-110)
[2020-01-09 20:18] VITALS: BP 108/64
[2020-01-10] MEDS: GABAPENTIN 400 MG CAPSULE PO SCH ×3 (00:01→16:30)
[2020-01-10 03:07] VITALS: BP 114/73
[2020-01-10 05:32] LABS: GLUCOMETER DEV NAME(LOC) 3E.I 2; GLUCOSE,POINT OF CARE 226 MG/DL (70-110)
[2020-01-10] MEDS: INSULIN LISPRO 100 UNITS/ML SQ PRN (06:50)
[2020-01-10] MEDS: MetFORMIN HCL 500 MG TABLET PO SCH ×2 (06:51→17:38)
[2020-01-10] MEDS: NICOTINE 14 MG/24 HOUR PATCH TD SCH (09:00)
[2020-01-10] MEDS: SERTRALINE HCL 50 MG TABLET PO SCH (09:32)
[2020-01-10] MEDS: AmLODIPine BESYLATE 5 MG TABLET PO SCH (09:32)
[2020-01-10] MEDS: QUEtiapine FUMARATE 100 MG TABLET PO SCH ×2 (09:32→21:03)
[2020-01-10 17:57] LABS: GLUCOMETER DEV NAME(LOC) 3E.I 2; GLUCOSE,POINT OF CARE 105 MG/DL (70-110)
[2020-01-11] MEDS: GABAPENTIN 400 MG CAPSULE PO SCH ×3 (00:44→16:53)
[2020-01-11 05:49] LABS: GLUCOMETER DEV NAME(LOC) 3E.I 2; GLUCOSE,POINT OF CARE 190 MG/DL (70-110)
[2020-01-11] MEDS: MetFORMIN HCL 500 MG TABLET PO SCH ×2 (07:03→16:53)
[2020-01-11] MEDS: NICOTINE 14 MG/24 HOUR PATCH TD SCH (09:00)
[2020-01-11] MEDS: LORazepam 2 MG TABLET PO PRN (09:11)
[2020-01-11] MEDS: SERTRALINE HCL 50 MG TABLET PO SCH (09:11)
[2020-01-11] MEDS: QUEtiapine FUMARATE 100 MG TABLET PO SCH ×2 (09:11→20:20)
[2020-01-11] MEDS: AmLODIPine BESYLATE 5 MG TABLET PO SCH (09:18)
[2020-01-11 10:29] VITALS: BP 156/78
[2020-01-11 16:00] VITALS: BP 130/76
[2020-01-11 17:07] LABS: GLUCOMETER DEV NAME(LOC) 3E.I 2; GLUCOSE,POINT OF CARE 310 MG/DL (70-110)
[2020-01-11] MEDS: INSULIN LISPRO 100 UNITS/ML SQ PRN (17:17)
[2020-01-12] MEDS: MetFORMIN HCL 500 MG TABLET PO SCH ×2 (06:41→17:30)
[2020-01-12] MEDS: SERTRALINE HCL 50 MG TABLET PO SCH ×2 (08:44→08:50)
[2020-01-12] MEDS: GABAPENTIN 400 MG CAPSULE PO SCH ×3 (08:44→16:35)
[2020-01-12] MEDS: AmLODIPine BESYLATE 5 MG TABLET PO SCH (08:44)
[2020-01-12] MEDS: QUEtiapine FUMARATE 100 MG TABLET PO SCH ×2 (08:44→21:00)
[2020-01-12] MEDS: NICOTINE 14 MG/24 HOUR PATCH TD SCH (08:45)
[2020-01-12 09:52] VITALS: BP 156/83
[2020-01-12] MEDS: LORazepam 2 MG TABLET PO PRN (13:29)
[2020-01-12 16:42] VITALS: BP 128/69
[2020-01-12 16:51] LABS: GLUCOMETER DEV NAME(LOC) 3E.I 2; GLUCOSE,POINT OF CARE 418 MG/DL (70-110)
[2020-01-12] MEDS ORDERED: INSULIN LISPRO 100 UNITS/ML SQ ONE (17:15)
[2020-01-13] MEDS: MetFORMIN HCL 500 MG TABLET PO SCH ×3 (06:45→17:58)
[2020-01-13] MEDS: GABAPENTIN 400 MG CAPSULE PO SCH ×4 (08:49→23:50)
[2020-01-13] MEDS: AmLODIPine BESYLATE 5 MG TABLET PO SCH (08:49)
[2020-01-13] MEDS: ESCITALOPRAM OXALATE 20 MG TABLET PO SCH (08:49)
[2020-01-13] MEDS: QUEtiapine FUMARATE 100 MG TABLET PO SCH ×2 (08:49→20:38)
[2020-01-13] MEDS: NICOTINE 14 MG/24 HOUR PATCH TD SCH (09:00)
[2020-01-13 09:24] VITALS: BP 144/92
[2020-01-13] MEDS: LORazepam 2 MG TABLET PO PRN (12:40)
[2020-01-13 16:51] VITALS: BP 146/69
[2020-01-13 16:57] LABS: GLUCOMETER DEV NAME(LOC) 3E.I 2; GLUCOSE,POINT OF CARE 403 MG/DL (70-110)
[2020-01-13] MEDS ORDERED: INSULIN LISPRO 100 UNITS/ML SQ ONE (18:00)
[2020-01-14] MEDS: MetFORMIN HCL 500 MG TABLET PO SCH ×2 (06:35→16:47)
[2020-01-14] MEDS: ESCITALOPRAM OXALATE 20 MG TABLET PO SCH (08:46)
[2020-01-14] MEDS: AmLODIPine BESYLATE 5 MG TABLET PO SCH (08:46)
[2020-01-14] MEDS: QUEtiapine FUMARATE 100 MG TABLET PO SCH ×2 (08:46→20:15)
[2020-01-14] MEDS: GABAPENTIN 400 MG CAPSULE PO SCH ×2 (08:50→16:18)
[2020-01-14] MEDS: NICOTINE 14 MG/24 HOUR PATCH TD SCH (08:52)
[2020-01-14 10:02] VITALS: BP 129/76
[2020-01-14 10:09] LABS: GLUCOMETER DEV NAME(LOC) 3E.I 2; GLUCOSE,POINT OF CARE 229 MG/DL (70-110)
[2020-01-14 16:15] LABS: GLUCOMETER DEV NAME(LOC) 3E.I 2; GLUCOSE,POINT OF CARE 208 MG/DL (70-110)
[2020-01-14 16:33] VITALS: BP 138/82
[2020-01-14] MEDS: INSULIN LISPRO 100 UNITS/ML SQ PRN (16:48)
[2020-01-15] MEDS: GABAPENTIN 400 MG CAPSULE PO SCH ×3 (00:34→16:27)
[2020-01-15] MEDS: MetFORMIN HCL 500 MG TABLET PO SCH ×2 (06:58→17:49)
[2020-01-15] MEDS: LORazepam 2 MG TABLET PO PRN (08:21)
[2020-01-15] MEDS: AmLODIPine BESYLATE 5 MG TABLET PO SCH (08:21)
[2020-01-15] MEDS: QUEtiapine FUMARATE 100 MG TABLET PO SCH ×2 (08:21→20:52)
[2020-01-15] MEDS: NICOTINE 14 MG/24 HOUR PATCH TD SCH (08:22)
[2020-01-15] MEDS: ESCITALOPRAM OXALATE 20 MG TABLET PO SCH (08:22)
[2020-01-15 08:23] VITALS: BP 124/71
[2020-01-15] MEDS: MAG HYDROX/AL HYDROX/SIMETH ES 30 ML SUSPENSION UDCUP PO PRN ×2 (09:49→10:13)
[2020-01-15] MEDS: LOPERAMIDE HCL 2 MG CAPSULE PO PRN (13:47)
[2020-01-15 17:01] LABS: GLUCOMETER DEV NAME(LOC) 3E.I 2; GLUCOSE,POINT OF CARE 199 MG/DL (70-110)
[2020-01-15] MEDS: INSULIN LISPRO 100 UNITS/ML SQ PRN (17:52)
[2020-01-15 18:26] VITALS: BP 114/69
[2020-01-16] MEDS: GABAPENTIN 400 MG CAPSULE PO SCH ×3 (00:58→16:11)
[2020-01-16 06:56] LABS: GLUCOMETER DEV NAME(LOC) 3E.I 2; GLUCOSE,POINT OF CARE 158 MG/DL (70-110)
[2020-01-16] MEDS: MetFORMIN HCL 500 MG TABLET PO SCH ×2 (07:16→17:08)
[2020-01-16] MEDS: INSULIN LISPRO 100 UNITS/ML SQ PRN ×2 (07:18→17:10)
[2020-01-16] MEDS: QUEtiapine FUMARATE 100 MG TABLET PO SCH ×2 (08:07→20:06)
[2020-01-16] MEDS: AmLODIPine BESYLATE 5 MG TABLET PO SCH (08:07)
[2020-01-16] MEDS: ESCITALOPRAM OXALATE 20 MG TABLET PO SCH (08:07)
[2020-01-16] MEDS: LORazepam 2 MG TABLET PO PRN (08:07)
[2020-01-16] MEDS: NICOTINE 14 MG/24 HOUR PATCH TD SCH (09:00)
[2020-01-16 10:07] VITALS: BP 121/73
[2020-01-16 16:09] LABS: GLUCOMETER DEV NAME(LOC) 3E.I 2; GLUCOSE,POINT OF CARE 232 MG/DL (70-110)
[2020-01-16 16:22] VITALS: BP 116/68
[2020-01-17] MEDS: GABAPENTIN 400 MG CAPSULE PO SCH ×3 (00:12→16:54)
[2020-01-17] MEDS: MetFORMIN HCL 500 MG TABLET PO SCH ×2 (06:42→16:54)
[2020-01-17] MEDS: NICOTINE 14 MG/24 HOUR PATCH TD SCH (09:00)
[2020-01-17] MEDS: ESCITALOPRAM OXALATE 20 MG TABLET PO SCH (09:05)
[2020-01-17] MEDS: QUEtiapine FUMARATE 100 MG TABLET PO SCH ×2 (09:05→21:47)
[2020-01-17] MEDS: AmLODIPine BESYLATE 5 MG TABLET PO SCH (09:05)
[2020-01-17] MEDS: LORazepam 2 MG TABLET PO PRN (09:05)
[2020-01-17 09:41] VITALS: BP 135/77
[2020-01-17 16:16] VITALS: BP 118/66
[2020-01-17 16:17] VITALS: BP 118/66
[2020-01-18] MEDS: GABAPENTIN 400 MG CAPSULE PO SCH ×3 (00:09→16:04)
[2020-01-18 05:44] LABS: GLUCOMETER DEV NAME(LOC) 3E.I 2; GLUCOSE,POINT OF CARE 142 MG/DL (70-110)
[2020-01-18] MEDS: MetFORMIN HCL 500 MG TABLET PO SCH ×2 (06:43→16:31)
[2020-01-18] MEDS: INSULIN LISPRO 100 UNITS/ML SQ PRN ×2 (06:45→18:00)
[2020-01-18 08:56] VITALS: BP 116/66
[2020-01-18] MEDS: NICOTINE 14 MG/24 HOUR PATCH TD SCH (09:00)
[2020-01-18] MEDS: QUEtiapine FUMARATE 100 MG TABLET PO SCH (09:25)
[2020-01-18] MEDS: ESCITALOPRAM OXALATE 20 MG TABLET PO SCH (09:25)
[2020-01-18] MEDS: AmLODIPine BESYLATE 5 MG TABLET PO SCH (09:26)
[2020-01-18 16:38] VITALS: BP 113/79
[2020-01-18 17:20] LABS: GLUCOMETER DEV NAME(LOC) 3E.I 2; GLUCOSE,POINT OF CARE 238 MG/DL (70-110)
[2020-01-18] MEDS: IBUPROFEN 400 MG TABLET PO PRN (17:40)
[2020-01-18 17:41] VITALS: BP 118/69
[2020-01-18] MEDS: QUEtiapine FUMARATE 200 MG TABLET PO SCH (20:52)
[2020-01-19] MEDS: GABAPENTIN 400 MG CAPSULE PO SCH ×3 (00:36→16:00)
[2020-01-19] MEDS: MetFORMIN HCL 500 MG TABLET PO SCH ×2 (07:09→17:34)
[2020-01-19] MEDS: NICOTINE 14 MG/24 HOUR PATCH TD SCH (09:00)
[2020-01-19] MEDS: LORazepam 2 MG TABLET PO PRN (09:29)
[2020-01-19] MEDS: QUEtiapine FUMARATE 100 MG TABLET PO SCH (09:29)
[2020-01-19] MEDS: AmLODIPine BESYLATE 5 MG TABLET PO SCH (09:30)
[2020-01-19] MEDS: ESCITALOPRAM OXALATE 20 MG TABLET PO SCH (09:30)
[2020-01-19 09:57] VITALS: BP 119/76
[2020-01-19 17:21] VITALS: BP 116/63
[2020-01-19 17:31] LABS: GLUCOMETER DEV NAME(LOC) 3E.I 2; GLUCOSE,POINT OF CARE 318 MG/DL (70-110)
[2020-01-19] MEDS: INSULIN LISPRO 100 UNITS/ML SQ PRN (17:36)
[2020-01-19 20:40] VITALS: BP 130/78
[2020-01-19] MEDS: QUEtiapine FUMARATE 200 MG TABLET PO SCH (20:40)
[2020-01-19] MEDS: IBUPROFEN 400 MG TABLET PO PRN (20:40)
[2020-01-20] MEDS: GABAPENTIN 400 MG CAPSULE PO SCH ×4 (00:30→23:41)
[2020-01-20 05:45] LABS: GLUCOMETER DEV NAME(LOC) 3E.I 2; GLUCOSE,POINT OF CARE 171 MG/DL (70-110)
[2020-01-20] MEDS: MetFORMIN HCL 500 MG TABLET PO SCH ×2 (07:07→17:29)
[2020-01-20] MEDS: INSULIN LISPRO 100 UNITS/ML SQ PRN ×2 (07:09→17:34)
[2020-01-20] MEDS: NICOTINE 14 MG/24 HOUR PATCH TD SCH (09:00)
[2020-01-20] MEDS: ESCITALOPRAM OXALATE 20 MG TABLET PO SCH (09:24)
[2020-01-20] MEDS: AmLODIPine BESYLATE 5 MG TABLET PO SCH (09:24)
[2020-01-20] MEDS: QUEtiapine FUMARATE 100 MG TABLET PO SCH (09:24)
[2020-01-20] MEDS: IBUPROFEN 400 MG TABLET PO PRN (14:47)
[2020-01-20] MEDS: ACETAMINOPHEN 325 MG TABLET PO PRN (16:18)
[2020-01-20 16:27] VITALS: BP 115/65
[2020-01-20 17:27] LABS: GLUCOMETER DEV NAME(LOC) 3E.I 2; GLUCOSE,POINT OF CARE 206 MG/DL (70-110)
[2020-01-20] MEDS: QUEtiapine FUMARATE 200 MG TABLET PO SCH (20:13)
[2020-01-21 05:45] LABS: GLUCOMETER DEV NAME(LOC) 3E.I 2; GLUCOSE,POINT OF CARE 156 MG/DL (70-110)
[2020-01-21] MEDS: INSULIN LISPRO 100 UNITS/ML SQ PRN ×2 (06:54→17:10)
[2020-01-21] MEDS: MetFORMIN HCL 500 MG TABLET PO SCH ×2 (06:54→17:24)
[2020-01-21 08:00] VITALS: BP 136/71
[2020-01-21] MEDS: NICOTINE 14 MG/24 HOUR PATCH TD SCH (08:41)
[2020-01-21] MEDS: ESCITALOPRAM OXALATE 20 MG TABLET PO SCH (08:41)
[2020-01-21] MEDS: GABAPENTIN 400 MG CAPSULE PO SCH ×3 (08:41→23:45)
[2020-01-21] MEDS: AmLODIPine BESYLATE 5 MG TABLET PO SCH (08:41)
[2020-01-21] MEDS: QUEtiapine FUMARATE 100 MG TABLET PO SCH (08:42)
[2020-01-21] MEDS: IBUPROFEN 400 MG TABLET PO PRN (15:54)
[2020-01-21 16:02] LABS: GLUCOMETER DEV NAME(LOC) 3E.I 2; GLUCOSE,POINT OF CARE 247 MG/DL (70-110)
[2020-01-21 16:29] VITALS: BP 101/72
[2020-01-21] MEDS: QUEtiapine FUMARATE 200 MG TABLET PO SCH (20:48)
[2020-01-22 05:04] VITALS: BP 110/76
[2020-01-22] MEDS: IBUPROFEN 400 MG TABLET PO PRN ×2 (05:04→15:25)
[2020-01-22 05:30] LABS: GLUCOMETER DEV NAME(LOC) 3E.I 2; GLUCOSE,POINT OF CARE 263 MG/DL (70-110)
[2020-01-22] MEDS: MetFORMIN HCL 500 MG TABLET PO SCH ×2 (06:36→17:33)
[2020-01-22] MEDS: INSULIN LISPRO 100 UNITS/ML SQ PRN ×3 (06:36→17:38)
[2020-01-22] MEDS: AmLODIPine BESYLATE 5 MG TABLET PO SCH (08:20)
[2020-01-22] MEDS: ESCITALOPRAM OXALATE 20 MG TABLET PO SCH (08:20)
[2020-01-22] MEDS: QUEtiapine FUMARATE 100 MG TABLET PO SCH (08:22)
[2020-01-22] MEDS: GABAPENTIN 400 MG CAPSULE PO SCH ×2 (08:25→16:22)
[2020-01-22] MEDS: NICOTINE 14 MG/24 HOUR PATCH TD SCH (08:27)
[2020-01-22 08:35] VITALS: BP 113/77
[2020-01-22 16:25] VITALS: BP 109/68
[2020-01-22 17:39] LABS: GLUCOMETER DEV NAME(LOC) 3E.I 2; GLUCOSE,POINT OF CARE 194 MG/DL (70-110)
[2020-01-22] MEDS: QUEtiapine FUMARATE 200 MG TABLET PO SCH (20:43)
[2020-01-23] MEDS: GABAPENTIN 400 MG CAPSULE PO SCH ×3 (00:16→16:28)
[2020-01-23] MEDS: MetFORMIN HCL 500 MG TABLET PO SCH ×2 (07:11→16:30)
[2020-01-23] MEDS: AmLODIPine BESYLATE 5 MG TABLET PO SCH (08:15)
[2020-01-23] MEDS: ESCITALOPRAM OXALATE 20 MG TABLET PO SCH (08:15)
[2020-01-23] MEDS: QUEtiapine FUMARATE 100 MG TABLET PO SCH (08:15)
[2020-01-23] MEDS: NICOTINE 14 MG/24 HOUR PATCH TD SCH (08:16)
[2020-01-23 12:00] VITALS: BP 119/70
[2020-01-23 16:30] VITALS: BP 117/65
[2020-01-23 16:49] LABS: GLUCOMETER DEV NAME(LOC) 3E.I 2; GLUCOSE,POINT OF CARE 188 MG/DL (70-110)
[2020-01-23] MEDS: INSULIN LISPRO 100 UNITS/ML SQ PRN (17:29)
[2020-01-23] MEDS: IBUPROFEN 400 MG TABLET PO PRN (18:45)
[2020-01-23] MEDS: QUEtiapine FUMARATE 200 MG TABLET PO SCH (20:38)
[2020-01-23 20:46] VITALS: BP 117/59
[2020-01-23] MEDS: ZOLPIDEM TARTRATE 10 MG TABLET PO PRN (20:46)
[2020-01-24] MEDS: GABAPENTIN 400 MG CAPSULE PO SCH ×3 (00:23→16:53)
[2020-01-24 05:40] LABS: GLUCOMETER DEV NAME(LOC) 3E.I 2; GLUCOSE,POINT OF CARE 139 MG/DL (70-110)
[2020-01-24] MEDS: MetFORMIN HCL 500 MG TABLET PO SCH ×2 (07:00→16:53)
[2020-01-24 08:00] VITALS: BP 131/74
[2020-01-24] MEDS: LORazepam 2 MG TABLET PO PRN (08:09)
[2020-01-24] MEDS: ESCITALOPRAM OXALATE 20 MG TABLET PO SCH (08:09)
[2020-01-24] MEDS: QUEtiapine FUMARATE 100 MG TABLET PO SCH (08:09)
[2020-01-24] MEDS: AmLODIPine BESYLATE 5 MG TABLET PO SCH (08:09)
[2020-01-24] MEDS: NICOTINE 14 MG/24 HOUR PATCH TD SCH (08:11)
[2020-01-24] MEDS: IBUPROFEN 400 MG TABLET PO PRN (08:38)
[2020-01-24] MEDS ORDERED: TUBERCULIN, PURIFIED PROTEIN DERIVATIVE 5 TU/0.1 ML SYRINGE ID ONE (11:00)
[2020-01-24] MEDS: QUEtiapine FUMARATE 200 MG TABLET PO SCH (20:06)
[2020-01-25] MEDS: GABAPENTIN 400 MG CAPSULE PO SCH ×3 (00:20→16:37)
[2020-01-25] MEDS: MetFORMIN HCL 500 MG TABLET PO SCH ×2 (06:46→16:37)
[2020-01-25 08:00] VITALS: BP 104/72
[2020-01-25] MEDS: LORazepam 2 MG TABLET PO PRN (08:17)
[2020-01-25] MEDS: QUEtiapine FUMARATE 200 MG TABLET PO SCH ×2 (08:17→20:09)
[2020-01-25] MEDS: NICOTINE 14 MG/24 HOUR PATCH TD SCH (08:17)
[2020-01-25] MEDS: ESCITALOPRAM OXALATE 20 MG TABLET PO SCH (08:17)
[2020-01-25] MEDS: AmLODIPine BESYLATE 5 MG TABLET PO SCH (08:17)
[2020-01-25] MEDS: IBUPROFEN 400 MG TABLET PO PRN (14:08)
[2020-01-25 16:33] VITALS: BP 123/73
[2020-01-25] MEDS: INSULIN LISPRO 100 UNITS/ML SQ PRN (16:51)
[2020-01-25 16:57] LABS: GLUCOMETER DEV NAME(LOC) 3E.I 2; GLUCOSE,POINT OF CARE 352 MG/DL (70-110)
[2020-01-26] MEDS: GABAPENTIN 400 MG CAPSULE PO SCH ×4 (00:38→23:57)
[2020-01-26 05:55] LABS: GLUCOMETER DEV NAME(LOC) 3E.I 2; GLUCOSE,POINT OF CARE 166 MG/DL (70-110)
[2020-01-26] MEDS: MetFORMIN HCL 500 MG TABLET PO SCH ×2 (07:02→16:55)
[2020-01-26] MEDS: INSULIN LISPRO 100 UNITS/ML SQ PRN ×2 (07:06→17:37)
[2020-01-26 08:00] VITALS: BP 119/54
[2020-01-26] MEDS: NICOTINE 14 MG/24 HOUR PATCH TD SCH (08:14)
[2020-01-26] MEDS: LORazepam 2 MG TABLET PO PRN (08:14)
[2020-01-26] MEDS: QUEtiapine FUMARATE 200 MG TABLET PO SCH ×2 (08:14→21:10)
[2020-01-26] MEDS: ESCITALOPRAM OXALATE 20 MG TABLET PO SCH (08:14)
[2020-01-26] MEDS: AmLODIPine BESYLATE 5 MG TABLET PO SCH (08:14)
[2020-01-26] MEDS: IBUPROFEN 400 MG TABLET PO PRN (12:50)
[2020-01-26 17:19] LABS: GLUCOMETER DEV NAME(LOC) 3E.I 2; GLUCOSE,POINT OF CARE 308 MG/DL (70-110)
[2020-01-27] MEDS: MetFORMIN HCL 500 MG TABLET PO SCH ×2 (07:04→17:20)
[2020-01-27 08:00] VITALS: BP 118/72
[2020-01-27] MEDS: AmLODIPine BESYLATE 5 MG TABLET PO SCH (08:42)
[2020-01-27] MEDS: GABAPENTIN 400 MG CAPSULE PO SCH ×3 (08:42→23:57)
[2020-01-27] MEDS: QUEtiapine FUMARATE 200 MG TABLET PO SCH ×2 (08:42→20:54)
[2020-01-27] MEDS: ESCITALOPRAM OXALATE 20 MG TABLET PO SCH (08:44)
[2020-01-27] MEDS: NICOTINE 14 MG/24 HOUR PATCH TD SCH (09:00)
[2020-01-27] MEDS: IBUPROFEN 400 MG TABLET PO PRN (15:20)
[2020-01-27] MEDS: INSULIN LISPRO 100 UNITS/ML SQ PRN (17:23)
[2020-01-27 19:28] LABS: GLUCOMETER DEV NAME(LOC) 3E.I 2; GLUCOSE,POINT OF CARE 338 MG/DL (70-110)
[2020-01-27 20:55] VITALS: BP 124/78
[2020-01-27] MEDS: ACETAMINOPHEN 325 MG TABLET PO PRN (20:59)
[2020-01-27] MEDS: ZOLPIDEM TARTRATE 10 MG TABLET PO PRN (21:21)
[2020-01-28] MEDS: MetFORMIN HCL 500 MG TABLET PO SCH ×2 (06:52→16:36)
[2020-01-28] MEDS: GlipiZIDE 5 MG TABLET PO SCH (06:52)
[2020-01-28] MEDS: IBUPROFEN 400 MG TABLET PO PRN ×2 (07:20→13:20)
[2020-01-28] MEDS: QUEtiapine FUMARATE 200 MG TABLET PO SCH ×2 (08:07→20:54)
[2020-01-28] MEDS: LORazepam 2 MG TABLET PO PRN ×2 (08:08→18:06)
[2020-01-28] MEDS: GABAPENTIN 400 MG CAPSULE PO SCH ×3 (08:08→23:50)
[2020-01-28] MEDS: ESCITALOPRAM OXALATE 20 MG TABLET PO SCH (08:08)
[2020-01-28] MEDS: AmLODIPine BESYLATE 5 MG TABLET PO SCH (08:08)
[2020-01-28] MEDS: NICOTINE 14 MG/24 HOUR PATCH TD SCH (09:00)
[2020-01-28 09:04] VITALS: BP 123/70
[2020-01-28 17:28] LABS: GLUCOMETER DEV NAME(LOC) 3E.I 2; GLUCOSE,POINT OF CARE 226 MG/DL (70-110)
[2020-01-28] MEDS: INSULIN LISPRO 100 UNITS/ML SQ PRN (17:30)
[2020-01-28 17:58] VITALS: BP 115/72
[2020-01-28] MEDS: ACETAMINOPHEN 325 MG TABLET PO PRN (17:58)
[2020-01-28 18:29] VITALS: BP 109/66
[2020-01-29 05:59] LABS: GLUCOMETER DEV NAME(LOC) 3E.I 2; GLUCOSE,POINT OF CARE 189 MG/DL (70-110)
[2020-01-29] MEDS: MetFORMIN HCL 500 MG TABLET PO SCH ×2 (07:13→16:16)
[2020-01-29] MEDS: GlipiZIDE 5 MG TABLET PO SCH (07:13)
[2020-01-29] MEDS: INSULIN LISPRO 100 UNITS/ML SQ PRN ×2 (07:15→17:50)
[2020-01-29] MEDS: QUEtiapine FUMARATE 200 MG TABLET PO SCH ×2 (08:35→20:26)
[2020-01-29] MEDS: ESCITALOPRAM OXALATE 20 MG TABLET PO SCH (08:35)
[2020-01-29] MEDS: GABAPENTIN 400 MG CAPSULE PO SCH ×2 (08:35→16:16)
[2020-01-29] MEDS: NICOTINE 14 MG/24 HOUR PATCH TD SCH (08:39)
[2020-01-29] MEDS: AmLODIPine BESYLATE 5 MG TABLET PO SCH (08:39)
[2020-01-29] MEDS: IBUPROFEN 400 MG TABLET PO PRN ×2 (12:31→16:18)
[2020-01-29] MEDS: LORazepam 2 MG TABLET PO PRN (14:11)
[2020-01-29] MEDS: TraMADol HCL 50 MG TABLET PO PRN (14:51)
[2020-01-29] MEDS ORDERED: DEXTROSE 50%-WATER 25 GM/50 ML SYRINGE IVP PRN (15:00)
[2020-01-29 16:16] VITALS: BP 116/68
[2020-01-29 16:36] VITALS: BP 116/68
[2020-01-29 16:48] LABS: GLUCOMETER DEV NAME(LOC) 3E.I 2; GLUCOSE,POINT OF CARE 185 MG/DL (70-110)
[2020-01-30] MEDS: GABAPENTIN 400 MG CAPSULE PO SCH ×3 (00:35→16:05)
[2020-01-30 05:55] LABS: GLUCOMETER DEV NAME(LOC) 3E.I 2; GLUCOSE,POINT OF CARE 166 MG/DL (70-110)
[2020-01-30] MEDS: GlipiZIDE 5 MG TABLET PO SCH (07:09)
[2020-01-30] MEDS: MetFORMIN HCL 500 MG TABLET PO SCH ×2 (07:09→17:32)
[2020-01-30] MEDS: INSULIN LISPRO 100 UNITS/ML SQ PRN ×2 (07:16→17:35)
[2020-01-30 08:38] VITALS: BP 119/62
[2020-01-30] MEDS: NICOTINE 14 MG/24 HOUR PATCH TD SCH (09:00)
[2020-01-30] MEDS: AmLODIPine BESYLATE 5 MG TABLET PO SCH (09:09)
[2020-01-30] MEDS: LORazepam 2 MG TABLET PO PRN ×2 (09:09→13:11)
[2020-01-30] MEDS: QUEtiapine FUMARATE 200 MG TABLET PO SCH ×2 (09:09→20:09)
[2020-01-30] MEDS: ESCITALOPRAM OXALATE 20 MG TABLET PO SCH (09:09)
[2020-01-30] MEDS: TraMADol HCL 50 MG TABLET PO PRN ×2 (09:11→20:10)
[2020-01-30] MEDS: IBUPROFEN 400 MG TABLET PO PRN (12:31)
[2020-01-30 15:48] VITALS: BP 111/74
[2020-01-30] MEDS: ACETAMINOPHEN 325 MG TABLET PO PRN (15:48)
[2020-01-30 16:32] LABS: GLUCOMETER DEV NAME(LOC) 3E.I 2; GLUCOSE,POINT OF CARE 187 MG/DL (70-110)
[2020-01-30 16:56] VITALS: BP 101/70
[2020-01-30 20:10] VITALS: BP 123/84
[2020-01-31] MEDS: GABAPENTIN 400 MG CAPSULE PO SCH ×4 (00:17→23:02)
[2020-01-31] MEDS: TraMADol HCL 50 MG TABLET PO PRN ×2 (06:20→16:04)
[2020-01-31 06:30] LABS: GLUCOMETER DEV NAME(LOC) 3E.I 2; GLUCOSE,POINT OF CARE 160 MG/DL (70-110)
[2020-01-31] MEDS: MetFORMIN HCL 500 MG TABLET PO SCH ×2 (07:14→17:25)
[2020-01-31] MEDS: GlipiZIDE 5 MG TABLET PO SCH (07:14)
[2020-01-31] MEDS: INSULIN LISPRO 100 UNITS/ML SQ PRN ×2 (07:17→17:26)
[2020-01-31 08:00] VITALS: BP 120/80
[2020-01-31] MEDS: AmLODIPine BESYLATE 5 MG TABLET PO SCH (08:02)
[2020-01-31] MEDS: ESCITALOPRAM OXALATE 20 MG TABLET PO SCH (08:02)
[2020-01-31] MEDS: QUEtiapine FUMARATE 200 MG TABLET PO SCH ×2 (08:02→20:46)
[2020-01-31] MEDS: NICOTINE 14 MG/24 HOUR PATCH TD SCH (08:03)
[2020-01-31] MEDS: LORazepam 2 MG TABLET PO PRN (08:04)
[2020-01-31] MEDS: IBUPROFEN 400 MG TABLET PO PRN ×2 (10:17→20:48)
[2020-01-31] MEDS: ACETAMINOPHEN 325 MG TABLET PO PRN (12:14)
[2020-01-31 16:23] VITALS: BP 151/81
[2020-01-31 17:15] LABS: GLUCOMETER DEV NAME(LOC) 3E.I 2; GLUCOSE,POINT OF CARE 185 MG/DL (70-110)
[2020-01-31] MEDS: ZOLPIDEM TARTRATE 10 MG TABLET PO PRN (20:46)
[2020-02-01 05:31] LABS: GLUCOMETER DEV NAME(LOC) 3E.I 2; GLUCOSE,POINT OF CARE 126 MG/DL (70-110)
[2020-02-01] MEDS: MetFORMIN HCL 500 MG TABLET PO SCH ×2 (06:35→16:17)
[2020-02-01] MEDS: GlipiZIDE 5 MG TABLET PO SCH (06:35)
[2020-02-01 08:14] VITALS: BP 131/72
[2020-02-01] MEDS: ESCITALOPRAM OXALATE 20 MG TABLET PO SCH (08:14)
[2020-02-01] MEDS: IBUPROFEN 400 MG TABLET PO PRN ×2 (08:14→21:30)
[2020-02-01] MEDS: QUEtiapine FUMARATE 200 MG TABLET PO SCH ×2 (08:14→20:33)
[2020-02-01] MEDS: AmLODIPine BESYLATE 5 MG TABLET PO SCH (08:14)
[2020-02-01] MEDS: GABAPENTIN 400 MG CAPSULE PO SCH ×3 (08:15→23:19)
[2020-02-01] MEDS: NICOTINE 14 MG/24 HOUR PATCH TD SCH (08:17)
[2020-02-01 09:09] VITALS: BP 133/64
[2020-02-01] MEDS: TraMADol HCL 50 MG TABLET PO PRN (12:47)
[2020-02-01 16:15] VITALS: BP 143/72
[2020-02-01] MEDS: ACETAMINOPHEN 325 MG TABLET PO PRN (16:19)
[2020-02-01 16:29] VITALS: BP 143/72
[2020-02-01 16:59] LABS: GLUCOMETER DEV NAME(LOC) 3E.I 2; GLUCOSE,POINT OF CARE 218 MG/DL (70-110)
[2020-02-01] MEDS: INSULIN LISPRO 100 UNITS/ML SQ PRN (17:45)
[2020-02-01 21:31] VITALS: BP 110/63
[2020-02-02] MEDS: TraMADol HCL 50 MG TABLET PO PRN ×3 (04:53→19:21)
[2020-02-02] MEDS: IBUPROFEN 400 MG TABLET PO PRN (05:01)
[2020-02-02 05:05] VITALS: BP 126/77
[2020-02-02 06:03] LABS: GLUCOMETER DEV NAME(LOC) 3E.I 2; GLUCOSE,POINT OF CARE 177 MG/DL (70-110)
[2020-02-02] MEDS: GlipiZIDE 5 MG TABLET PO SCH (07:00)
[2020-02-02] MEDS: MetFORMIN HCL 500 MG TABLET PO SCH ×2 (07:19→16:35)
[2020-02-02] MEDS: INSULIN LISPRO 100 UNITS/ML SQ PRN ×2 (07:19→17:27)
[2020-02-02] MEDS: QUEtiapine FUMARATE 200 MG TABLET PO SCH ×2 (08:52→20:28)
[2020-02-02] MEDS: LORazepam 2 MG TABLET PO PRN (08:52)
[2020-02-02] MEDS: AmLODIPine BESYLATE 5 MG TABLET PO SCH (08:52)
[2020-02-02] MEDS: GABAPENTIN 400 MG CAPSULE PO SCH ×2 (08:52→16:00)
[2020-02-02] MEDS: ESCITALOPRAM OXALATE 20 MG TABLET PO SCH (08:53)
[2020-02-02] MEDS: NICOTINE 14 MG/24 HOUR PATCH TD SCH (08:53)
[2020-02-02 08:54] VITALS: BP 134/77
[2020-02-02 16:09] VITALS: BP 115/69
[2020-02-02 16:34] LABS: GLUCOMETER DEV NAME(LOC) 3E.I 2; GLUCOSE,POINT OF CARE 229 MG/DL (70-110)
[2020-02-02 19:21] VITALS: BP 130/71
[2020-02-02] MEDS: ZOLPIDEM TARTRATE 10 MG TABLET PO PRN (20:40)
[2020-02-03] MEDS: GABAPENTIN 400 MG CAPSULE PO SCH ×4 (00:01→23:06)
[2020-02-03 04:42] VITALS: BP 107/69
[2020-02-03] MEDS: IBUPROFEN 400 MG TABLET PO PRN ×2 (04:46→16:01)
[2020-02-03 05:36] LABS: GLUCOMETER DEV NAME(LOC) 3E.I 2; GLUCOSE,POINT OF CARE 200 MG/DL (70-110)
[2020-02-03] MEDS: MetFORMIN HCL 500 MG TABLET PO SCH ×2 (06:34→16:42)
[2020-02-03] MEDS: INSULIN LISPRO 100 UNITS/ML SQ PRN ×2 (06:35→17:29)
[2020-02-03] MEDS: GlipiZIDE 5 MG TABLET PO SCH (06:35)
[2020-02-03 08:00] VITALS: BP 144/86
[2020-02-03] MEDS: QUEtiapine FUMARATE 200 MG TABLET PO SCH ×2 (08:41→20:21)
[2020-02-03] MEDS: NICOTINE 14 MG/24 HOUR PATCH TD SCH (08:41)
[2020-02-03] MEDS: AmLODIPine BESYLATE 5 MG TABLET PO SCH (08:41)
[2020-02-03] MEDS: ESCITALOPRAM OXALATE 20 MG TABLET PO SCH (08:41)
[2020-02-03] MEDS: TraMADol HCL 50 MG TABLET PO PRN (08:41)
[2020-02-03] MEDS: LORazepam 2 MG TABLET PO PRN (08:42)
[2020-02-03 17:05] LABS: GLUCOMETER DEV NAME(LOC) 3E.I 2; GLUCOSE,POINT OF CARE 221 MG/DL (70-110)
[2020-02-03 19:22] VITALS: BP 123/83
[2020-02-03] MEDS: ACETAMINOPHEN 325 MG TABLET PO PRN (20:22)
[2020-02-04] MEDS: GlipiZIDE 5 MG TABLET PO SCH (06:58)
[2020-02-04] MEDS: MetFORMIN HCL 500 MG TABLET PO SCH ×2 (06:58→17:49)
[2020-02-04] MEDS: NICOTINE 14 MG/24 HOUR PATCH TD SCH (09:00)
[2020-02-04 09:38] VITALS: BP 121/70
[2020-02-04] MEDS: QUEtiapine FUMARATE 200 MG TABLET PO SCH ×2 (09:38→20:30)
[2020-02-04] MEDS: TraMADol HCL 50 MG TABLET PO PRN (09:38)
[2020-02-04] MEDS: LOPERAMIDE HCL 2 MG CAPSULE PO PRN (09:38)
[2020-02-04] MEDS: GABAPENTIN 400 MG CAPSULE PO SCH ×2 (09:38→16:10)
[2020-02-04] MEDS: LORazepam 2 MG TABLET PO PRN (09:39)
[2020-02-04] MEDS: AmLODIPine BESYLATE 5 MG TABLET PO SCH (09:39)
[2020-02-04] MEDS: ESCITALOPRAM OXALATE 20 MG TABLET PO SCH (09:39)
[2020-02-04 16:11] VITALS: BP 112/74
[2020-02-04] MEDS: IBUPROFEN 400 MG TABLET PO PRN (16:11)
[2020-02-04 17:03] VITALS: BP 100/69
[2020-02-04 17:19] LABS: GLUCOMETER DEV NAME(LOC) 3E.I 2; GLUCOSE,POINT OF CARE 279 MG/DL (70-110)
[2020-02-04] MEDS: INSULIN LISPRO 100 UNITS/ML SQ PRN (17:23)
[2020-02-05] MEDS: GABAPENTIN 400 MG CAPSULE PO SCH ×3 (00:34→16:26)
[2020-02-05 05:49] LABS: GLUCOMETER DEV NAME(LOC) 3E.I 2; GLUCOSE,POINT OF CARE 133 MG/DL (70-110)
[2020-02-05] MEDS: MetFORMIN HCL 500 MG TABLET PO SCH ×2 (07:05→17:34)
[2020-02-05] MEDS: GlipiZIDE 5 MG TABLET PO SCH (07:05)
[2020-02-05] MEDS: QUEtiapine FUMARATE 200 MG TABLET PO SCH ×2 (08:19→20:26)
[2020-02-05] MEDS: ESCITALOPRAM OXALATE 20 MG TABLET PO SCH (08:19)
[2020-02-05] MEDS: AmLODIPine BESYLATE 5 MG TABLET PO SCH (08:20)
[2020-02-05] MEDS: TraMADol HCL 50 MG TABLET PO PRN (08:20)
[2020-02-05] MEDS: NICOTINE 14 MG/24 HOUR PATCH TD SCH (08:20)
[2020-02-05] MEDS: LORazepam 2 MG TABLET PO PRN (08:21)
[2020-02-05] MEDS: IBUPROFEN 400 MG TABLET PO PRN (16:29)
[2020-02-05 17:09] VITALS: BP 114/71
[2020-02-05] MEDS: INSULIN LISPRO 100 UNITS/ML SQ PRN (17:36)
[2020-02-05] MEDS: ZOLPIDEM TARTRATE 10 MG TABLET PO PRN (20:30)
[2020-02-06] MEDS: GABAPENTIN 400 MG CAPSULE PO SCH ×3 (00:03→16:31)
[2020-02-06 06:14] LABS: GLUCOMETER DEV NAME(LOC) 3E.I 2; GLUCOSE,POINT OF CARE 143 MG/DL (70-110)
[2020-02-06] MEDS: MetFORMIN HCL 500 MG TABLET PO SCH ×2 (06:48→16:31)
[2020-02-06] MEDS: GlipiZIDE 5 MG TABLET PO SCH (06:48)
[2020-02-06] MEDS: INSULIN LISPRO 100 UNITS/ML SQ PRN ×2 (06:48→17:35)
[2020-02-06 08:30] VITALS: BP 139/81
[2020-02-06] MEDS: TraMADol HCL 50 MG TABLET PO PRN (08:42)
[2020-02-06] MEDS: AmLODIPine BESYLATE 5 MG TABLET PO SCH (08:42)
[2020-02-06] MEDS: ESCITALOPRAM OXALATE 20 MG TABLET PO SCH (08:42)
[2020-02-06] MEDS: QUEtiapine FUMARATE 200 MG TABLET PO SCH ×2 (08:42→20:44)
[2020-02-06] MEDS: LORazepam 2 MG TABLET PO PRN (08:42)
[2020-02-06] MEDS: NICOTINE 14 MG/24 HOUR PATCH TD SCH (08:43)
[2020-02-06 16:30] VITALS: BP 134/82
[2020-02-06] MEDS: IBUPROFEN 400 MG TABLET PO PRN (16:31)
[2020-02-06 18:26] LABS: GLUCOMETER DEV NAME(LOC) 3E.I 2; GLUCOSE,POINT OF CARE 188 MG/DL (70-110)
[2020-02-07] MEDS: GABAPENTIN 400 MG CAPSULE PO SCH ×3 (00:07→17:08)
[2020-02-07 05:43] LABS: GLUCOMETER DEV NAME(LOC) 3E.I 2; GLUCOSE,POINT OF CARE 234 MG/DL (70-110)
[2020-02-07] MEDS: GlipiZIDE 5 MG TABLET PO SCH (06:39)
[2020-02-07] MEDS: MetFORMIN HCL 500 MG TABLET PO SCH ×2 (06:39→17:08)
[2020-02-07] MEDS: INSULIN LISPRO 100 UNITS/ML SQ PRN ×2 (06:40→17:31)
[2020-02-07] MEDS: QUEtiapine FUMARATE 200 MG TABLET PO SCH ×2 (08:27→20:26)
[2020-02-07] MEDS: AmLODIPine BESYLATE 5 MG TABLET PO SCH (08:27)
[2020-02-07 08:34] VITALS: BP 130/76
[2020-02-07] MEDS: IBUPROFEN 400 MG TABLET PO PRN ×2 (08:34→22:45)
[2020-02-07] MEDS: NICOTINE 14 MG/24 HOUR PATCH TD SCH (09:00)
[2020-02-07 09:07] VITALS: BP 130/76
[2020-02-07 09:34] VITALS: BP 132/74
[2020-02-07] MEDS: ESCITALOPRAM OXALATE 10 MG TABLET PO SCH (12:37)
[2020-02-07 16:30] VITALS: BP 114/75
[2020-02-07 17:53] LABS: GLUCOMETER DEV NAME(LOC) 3E.I 2; GLUCOSE,POINT OF CARE 256 MG/DL (70-110)
[2020-02-07 22:10] LABS: GLUCOMETER DEV NAME(LOC) 3E.I 2; GLUCOSE,POINT OF CARE 126 MG/DL (70-110)
[2020-02-07 22:39] VITALS: BP 109/76
[2020-02-08] MEDS: GABAPENTIN 400 MG CAPSULE PO SCH ×4 (00:17→23:01)
[2020-02-08] MEDS: GlipiZIDE 5 MG TABLET PO SCH (06:36)
[2020-02-08] MEDS: MetFORMIN HCL 500 MG TABLET PO SCH ×2 (06:36→16:34)
[2020-02-08] MEDS: QUEtiapine FUMARATE 200 MG TABLET PO SCH ×2 (08:52→20:52)
[2020-02-08] MEDS: AmLODIPine BESYLATE 5 MG TABLET PO SCH (08:52)
[2020-02-08] MEDS: ESCITALOPRAM OXALATE 10 MG TABLET PO SCH (08:52)
[2020-02-08] MEDS: LORazepam 2 MG TABLET PO PRN (08:57)
[2020-02-08] MEDS: NICOTINE 14 MG/24 HOUR PATCH TD SCH (09:00)
[2020-02-08 11:01] VITALS: BP 122/59
[2020-02-08] MEDS: MAG HYDROX/AL HYDROX/SIMETH ES 30 ML SUSPENSION UDCUP PO PRN (12:41)
[2020-02-08 16:19] VITALS: BP 117/72
[2020-02-08 17:12] LABS: GLUCOMETER DEV NAME(LOC) 3E.I 2; GLUCOSE,POINT OF CARE 289 MG/DL (70-110)
[2020-02-08] MEDS: INSULIN LISPRO 100 UNITS/ML SQ PRN (17:52)
[2020-02-09 05:44] LABS: GLUCOMETER DEV NAME(LOC) 3E.I 2; GLUCOSE,POINT OF CARE 157 MG/DL (70-110)
[2020-02-09 06:12] VITALS: BP 124/79
[2020-02-09] MEDS: GlipiZIDE 5 MG TABLET PO SCH (06:44)
[2020-02-09] MEDS: MetFORMIN HCL 500 MG TABLET PO SCH ×2 (06:45→16:41)
[2020-02-09] MEDS: INSULIN LISPRO 100 UNITS/ML SQ PRN ×2 (06:46→17:42)
[2020-02-09] MEDS: QUEtiapine FUMARATE 200 MG TABLET PO SCH ×2 (08:15→20:41)
[2020-02-09] MEDS: ESCITALOPRAM OXALATE 10 MG TABLET PO SCH (08:15)
[2020-02-09] MEDS: AmLODIPine BESYLATE 5 MG TABLET PO SCH (08:15)
[2020-02-09] MEDS: LORazepam 2 MG TABLET PO PRN (08:15)
[2020-02-09] MEDS: GABAPENTIN 400 MG CAPSULE PO SCH ×3 (08:15→23:50)
[2020-02-09] MEDS: NICOTINE 14 MG/24 HOUR PATCH TD SCH (09:00)
[2020-02-09 10:49] VITALS: BP 134/76
[2020-02-09 16:00] VITALS: BP 131/75
[2020-02-09] MEDS: IBUPROFEN 400 MG TABLET PO PRN (16:43)
[2020-02-09 17:39] LABS: GLUCOMETER DEV NAME(LOC) 3E.I 2; GLUCOSE,POINT OF CARE 233 MG/DL (70-110)
[2020-02-09] MEDS: ZOLPIDEM TARTRATE 10 MG TABLET PO PRN (21:00)
[2020-02-10 05:57] LABS: GLUCOMETER DEV NAME(LOC) 3E.I 2; GLUCOSE,POINT OF CARE 160 MG/DL (70-110)
[2020-02-10] MEDS: MetFORMIN HCL 500 MG TABLET PO SCH ×2 (06:48→16:44)
[2020-02-10] MEDS: GlipiZIDE 5 MG TABLET PO SCH (06:48)
[2020-02-10] MEDS: INSULIN LISPRO 100 UNITS/ML SQ PRN ×2 (06:48→17:22)
[2020-02-10 08:00] VITALS: BP 123/78
[2020-02-10] MEDS: NICOTINE 14 MG/24 HOUR PATCH TD SCH (09:00)
[2020-02-10] MEDS: ESCITALOPRAM OXALATE 10 MG TABLET PO SCH (09:10)
[2020-02-10] MEDS: LORazepam 2 MG TABLET PO PRN (09:10)
[2020-02-10] MEDS: QUEtiapine FUMARATE 200 MG TABLET PO SCH ×2 (09:10→20:21)
[2020-02-10] MEDS: GABAPENTIN 400 MG CAPSULE PO SCH ×2 (09:10→16:13)
[2020-02-10] MEDS: AmLODIPine BESYLATE 5 MG TABLET PO SCH (09:10)
[2020-02-10 16:14] VITALS: BP 127/68
[2020-02-10 16:21] LABS: GLUCOMETER DEV NAME(LOC) 3E.I 2; GLUCOSE,POINT OF CARE 290 MG/DL (70-110)
[2020-02-10 16:39] VITALS: BP 122/68
[2020-02-10] MEDS: IBUPROFEN 400 MG TABLET PO PRN (16:43)
[2020-02-11] MEDS: GABAPENTIN 400 MG CAPSULE PO SCH ×3 (00:09→16:16)
[2020-02-11] MEDS: TraMADol HCL 50 MG TABLET PO PRN (04:56)
[2020-02-11 05:38] LABS: GLUCOMETER DEV NAME(LOC) 3E.I 2; GLUCOSE,POINT OF CARE 159 MG/DL (70-110)
[2020-02-11] MEDS: INSULIN LISPRO 100 UNITS/ML SQ PRN ×2 (06:50→17:49)
[2020-02-11] MEDS: GlipiZIDE 5 MG TABLET PO SCH (06:54)
[2020-02-11] MEDS: MetFORMIN HCL 500 MG TABLET PO SCH ×2 (06:54→16:30)
[2020-02-11] MEDS: LORazepam 2 MG TABLET PO PRN ×2 (08:19→21:27)
[2020-02-11] MEDS: AmLODIPine BESYLATE 5 MG TABLET PO SCH (08:19)
[2020-02-11] MEDS: QUEtiapine FUMARATE 200 MG TABLET PO SCH ×2 (08:19→20:53)
[2020-02-11] MEDS: ESCITALOPRAM OXALATE 10 MG TABLET PO SCH (08:20)
[2020-02-11] MEDS: NICOTINE 14 MG/24 HOUR PATCH TD SCH (09:00)
[2020-02-11 16:17] VITALS: BP 125/70
[2020-02-11 16:58] LABS: GLUCOMETER DEV NAME(LOC) 3E.I 2; GLUCOSE,POINT OF CARE 418 MG/DL (70-110)
[2020-02-11 17:56] LABS: GLUCOMETER DEV NAME(LOC) 3E.I 2; GLUCOSE,POINT OF CARE 352 MG/DL (70-110)
[2020-02-11 21:25] VITALS: BP 115/72
[2020-02-12] MEDS: GABAPENTIN 400 MG CAPSULE PO SCH ×4 (00:23→23:56)
[2020-02-12 05:42] LABS: GLUCOMETER DEV NAME(LOC) 3E.I 2; GLUCOSE,POINT OF CARE 170 MG/DL (70-110)
[2020-02-12] MEDS: INSULIN LISPRO 100 UNITS/ML SQ PRN ×2 (06:54→17:29)
[2020-02-12] MEDS: GlipiZIDE 5 MG TABLET PO SCH (06:55)
[2020-02-12] MEDS: MetFORMIN HCL 500 MG TABLET PO SCH ×2 (06:55→16:31)
[2020-02-12] MEDS: AmLODIPine BESYLATE 5 MG TABLET PO SCH (07:52)
[2020-02-12] MEDS: ESCITALOPRAM OXALATE 10 MG TABLET PO SCH (07:52)
[2020-02-12] MEDS: NICOTINE 14 MG/24 HOUR PATCH TD SCH (07:53)
[2020-02-12] MEDS: QUEtiapine FUMARATE 200 MG TABLET PO SCH ×2 (07:53→20:42)
[2020-02-12] MEDS: LORazepam 2 MG TABLET PO PRN (07:59)
[2020-02-12] MEDS: TraMADol HCL 50 MG TABLET PO PRN (13:10)
[2020-02-12 16:00] VITALS: BP 130/80
[2020-02-12 16:38] LABS: GLUCOMETER DEV NAME(LOC) 3E.I 2; GLUCOSE,POINT OF CARE 285 MG/DL (70-110)
[2020-02-13 05:46] LABS: GLUCOMETER DEV NAME(LOC) 3E.I 2; GLUCOSE,POINT OF CARE 144 MG/DL (70-110)
[2020-02-13] MEDS: GlipiZIDE 5 MG TABLET PO SCH (07:00)
[2020-02-13] MEDS: MetFORMIN HCL 500 MG TABLET PO SCH ×2 (07:00→16:40)
[2020-02-13] MEDS: INSULIN LISPRO 100 UNITS/ML SQ PRN ×2 (07:01→17:30)
[2020-02-13 08:00] VITALS: BP 138/75
[2020-02-13] MEDS: QUEtiapine FUMARATE 200 MG TABLET PO SCH ×2 (08:12→20:11)
[2020-02-13] MEDS: AmLODIPine BESYLATE 5 MG TABLET PO SCH (08:12)
[2020-02-13] MEDS: ESCITALOPRAM OXALATE 10 MG TABLET PO SCH (08:12)
[2020-02-13] MEDS: GABAPENTIN 400 MG CAPSULE PO SCH ×3 (08:12→23:43)
[2020-02-13] MEDS: NICOTINE 14 MG/24 HOUR PATCH TD SCH (08:17)
[2020-02-13 16:00] VITALS: BP 140/85
[2020-02-13] MEDS: IBUPROFEN 400 MG TABLET PO PRN (16:40)
[2020-02-13 16:50] LABS: GLUCOMETER DEV NAME(LOC) 3E.I 2; GLUCOSE,POINT OF CARE 212 MG/DL (70-110)
[2020-02-13 23:45] VITALS: BP 109/61
[2020-02-13] MEDS: ZOLPIDEM TARTRATE 10 MG TABLET PO PRN (23:48)
[2020-02-13] MEDS: TraMADol HCL 50 MG TABLET PO PRN (23:49)
[2020-02-14 06:00] LABS: GLUCOMETER DEV NAME(LOC) 3E.I 2; GLUCOSE,POINT OF CARE 164 MG/DL (70-110)
[2020-02-14] MEDS: GlipiZIDE 5 MG TABLET PO SCH (06:55)
[2020-02-14] MEDS: MetFORMIN HCL 500 MG TABLET PO SCH ×2 (06:55→16:51)
[2020-02-14] MEDS: INSULIN LISPRO 100 UNITS/ML SQ PRN ×2 (06:56→17:25)
[2020-02-14 08:00] VITALS: BP 138/61
[2020-02-14] MEDS: NICOTINE 14 MG/24 HOUR PATCH TD SCH (09:00)
[2020-02-14] MEDS: GABAPENTIN 400 MG CAPSULE PO SCH ×3 (09:04→23:49)
[2020-02-14] MEDS: AmLODIPine BESYLATE 5 MG TABLET PO SCH (09:04)
[2020-02-14] MEDS: ESCITALOPRAM OXALATE 10 MG TABLET PO SCH (09:08)
[2020-02-14] MEDS: QUEtiapine FUMARATE 200 MG TABLET PO SCH ×2 (09:10→20:35)
[2020-02-14 16:16] VITALS: BP 107/68
[2020-02-14 16:55] LABS: GLUCOMETER DEV NAME(LOC) 3E.I 2; GLUCOSE,POINT OF CARE 178 MG/DL (70-110)
[2020-02-14 20:39] VITALS: BP 115/72
[2020-02-14] MEDS: IBUPROFEN 400 MG TABLET PO PRN (20:43)
[2020-02-15 04:08] VITALS: BP 133/80
[2020-02-15] MEDS: TraMADol HCL 50 MG TABLET PO PRN (04:08)
[2020-02-15 04:24] LABS: GLUCOMETER DEV NAME(LOC) 3E.I 2; GLUCOSE,POINT OF CARE 152 MG/DL (70-110)
[2020-02-15] MEDS: GlipiZIDE 5 MG TABLET PO SCH (06:46)
[2020-02-15] MEDS: MetFORMIN HCL 500 MG TABLET PO SCH ×2 (06:46→16:28)
[2020-02-15] MEDS: ESCITALOPRAM OXALATE 10 MG TABLET PO SCH (08:01)
[2020-02-15] MEDS: QUEtiapine FUMARATE 200 MG TABLET PO SCH ×2 (08:01→20:14)
[2020-02-15] MEDS: AmLODIPine BESYLATE 5 MG TABLET PO SCH (08:01)
[2020-02-15] MEDS: GABAPENTIN 400 MG CAPSULE PO SCH ×3 (08:03→20:15)
[2020-02-15 08:48] VITALS: BP 156/79
[2020-02-15] MEDS: LOPERAMIDE HCL 2 MG CAPSULE PO PRN (08:51)
[2020-02-15] MEDS: NICOTINE 14 MG/24 HOUR PATCH TD SCH (09:00)
[2020-02-15 16:03] VITALS: BP 132/83
[2020-02-15 17:11] LABS: GLUCOMETER DEV NAME(LOC) 3E.I 2; GLUCOSE,POINT OF CARE 163 MG/DL (70-110)
[2020-02-15] MEDS: INSULIN LISPRO 100 UNITS/ML SQ PRN (17:48)
[2020-02-15 19:17] VITALS: BP 148/61
[2020-02-15] MEDS: IBUPROFEN 400 MG TABLET PO PRN (19:21)
[2020-02-16] MEDS: ZOLPIDEM TARTRATE 10 MG TABLET PO PRN (00:19)
[2020-02-16] MEDS: MAG HYDROX/AL HYDROX/SIMETH ES 30 ML SUSPENSION UDCUP PO PRN ×2 (00:19→08:36)
[2020-02-16 02:48] VITALS: BP 138/78
[2020-02-16 05:40] LABS: GLUCOMETER DEV NAME(LOC) 3E.I 2; GLUCOSE,POINT OF CARE 143 MG/DL (70-110)
[2020-02-16] MEDS: GlipiZIDE 5 MG TABLET PO SCH (06:47)
[2020-02-16] MEDS: INSULIN LISPRO 100 UNITS/ML SQ PRN (06:54)
[2020-02-16] MEDS: MetFORMIN HCL 500 MG TABLET PO SCH ×2 (06:54→16:48)
[2020-02-16 08:00] VITALS: BP 148/92
[2020-02-16] MEDS: QUEtiapine FUMARATE 200 MG TABLET PO SCH ×2 (08:27→20:17)
[2020-02-16] MEDS: GABAPENTIN 400 MG CAPSULE PO SCH ×3 (08:30→20:17)
[2020-02-16] MEDS: AmLODIPine BESYLATE 5 MG TABLET PO SCH (08:32)
[2020-02-16] MEDS: NICOTINE 14 MG/24 HOUR PATCH TD SCH (08:32)
[2020-02-16] MEDS: ESCITALOPRAM OXALATE 10 MG TABLET PO SCH (08:32)
[2020-02-16] MEDS: OMEPRAZOLE 20 MG CAPSULE PO SCH (08:49)
[2020-02-16] MEDS: HYPROMELLOSE 0.5% 15 ML OPHTHALMIC SOLUTION OU PRN (11:51)
[2020-02-16 16:46] LABS: GLUCOMETER DEV NAME(LOC) 3E.I 2; GLUCOSE,POINT OF CARE 189 MG/DL (70-110)
[2020-02-16 17:05] VITALS: BP 127/72
[2020-02-16 19:25] VITALS: BP 143/76
[2020-02-16] MEDS: IBUPROFEN 400 MG TABLET PO PRN (19:25)
[2020-02-17 05:00] VITALS: BP 152/93
[2020-02-17] MEDS: TraMADol HCL 50 MG TABLET PO PRN ×2 (05:03→13:39)
[2020-02-17 05:44] LABS: GLUCOMETER DEV NAME(LOC) 3E.I 2; GLUCOSE,POINT OF CARE 183 MG/DL (70-110)
[2020-02-17] MEDS: MAG HYDROX/AL HYDROX/SIMETH ES 30 ML SUSPENSION UDCUP PO PRN (06:09)
[2020-02-17] MEDS: HYPROMELLOSE 0.5% 15 ML OPHTHALMIC SOLUTION OU PRN (06:10)
[2020-02-17] MEDS: MetFORMIN HCL 500 MG TABLET PO SCH ×2 (06:57→16:31)
[2020-02-17] MEDS: GlipiZIDE 5 MG TABLET PO SCH (06:57)
[2020-02-17] MEDS: INSULIN LISPRO 100 UNITS/ML SQ PRN ×2 (06:59→17:48)
[2020-02-17] MEDS: ESCITALOPRAM OXALATE 10 MG TABLET PO SCH (07:37)
[2020-02-17] MEDS: QUEtiapine FUMARATE 200 MG TABLET PO SCH ×2 (07:37→20:13)
[2020-02-17] MEDS: AmLODIPine BESYLATE 5 MG TABLET PO SCH (07:38)
[2020-02-17] MEDS: GABAPENTIN 400 MG CAPSULE PO SCH ×3 (07:38→20:13)
[2020-02-17] MEDS: NICOTINE 14 MG/24 HOUR PATCH TD SCH (07:38)
[2020-02-17] MEDS: OMEPRAZOLE 20 MG CAPSULE PO SCH (07:38)
[2020-02-17 08:00] VITALS: BP 158/90
[2020-02-17 16:12] VITALS: BP 117/71
[2020-02-17 16:51] LABS: GLUCOMETER DEV NAME(LOC) 3E.I 2; GLUCOSE,POINT OF CARE 199 MG/DL (70-110)
[2020-02-18 00:20] VITALS: BP 133/62
[2020-02-18] MEDS: TraMADol HCL 50 MG TABLET PO PRN ×3 (00:26→21:01)
[2020-02-18] MEDS: IBUPROFEN 400 MG TABLET PO PRN ×2 (04:49→16:15)
[2020-02-18] MEDS: MetFORMIN HCL 500 MG TABLET PO SCH ×2 (06:48→17:32)
[2020-02-18] MEDS: GlipiZIDE 5 MG TABLET PO SCH (06:48)
[2020-02-18] MEDS: QUEtiapine FUMARATE 200 MG TABLET PO SCH ×2 (08:32→20:11)
[2020-02-18] MEDS: OMEPRAZOLE 20 MG CAPSULE PO SCH (08:32)
[2020-02-18] MEDS: GABAPENTIN 400 MG CAPSULE PO SCH ×3 (08:32→20:11)
[2020-02-18] MEDS: AmLODIPine BESYLATE 5 MG TABLET PO SCH (08:32)
[2020-02-18] MEDS: ESCITALOPRAM OXALATE 10 MG TABLET PO SCH (08:32)
[2020-02-18] MEDS: NICOTINE 14 MG/24 HOUR PATCH TD SCH (08:33)
[2020-02-18 11:05] VITALS: BP 133/79
[2020-02-18] MEDS: LORazepam 2 MG TABLET PO PRN (11:05)
[2020-02-18 12:15] LABS: GLUCOMETER DEV NAME(LOC) 3E.I 2; GLUCOSE,POINT OF CARE 137 MG/DL (70-110)
[2020-02-18 16:18] VITALS: BP 111/63
[2020-02-18 16:48] LABS: GLUCOMETER DEV NAME(LOC) 3E.I 2; GLUCOSE,POINT OF CARE 187 MG/DL (70-110)
[2020-02-18] MEDS: INSULIN LISPRO 100 UNITS/ML SQ PRN (17:20)
[2020-02-19] MEDS: IBUPROFEN 400 MG TABLET PO PRN (04:29)
[2020-02-19 05:39] LABS: GLUCOMETER DEV NAME(LOC) 3E.I 2; GLUCOSE,POINT OF CARE 218 MG/DL (70-110)
[2020-02-19 05:50] VITALS: BP 127/68
[2020-02-19] MEDS: TraMADol HCL 50 MG TABLET PO PRN (05:54)
[2020-02-19] MEDS: GlipiZIDE 5 MG TABLET PO SCH (06:54)
[2020-02-19] MEDS: MetFORMIN HCL 500 MG TABLET PO SCH ×2 (06:55→16:43)
[2020-02-19] MEDS: INSULIN LISPRO 100 UNITS/ML SQ PRN ×2 (06:59→17:23)
[2020-02-19 08:00] VITALS: BP 150/83
[2020-02-19] MEDS: AmLODIPine BESYLATE 5 MG TABLET PO SCH (08:27)
[2020-02-19] MEDS: LORazepam 2 MG TABLET PO PRN ×2 (08:27→14:51)
[2020-02-19] MEDS: OMEPRAZOLE 20 MG CAPSULE PO SCH (08:27)
[2020-02-19] MEDS: QUEtiapine FUMARATE 200 MG TABLET PO SCH ×2 (08:27→20:34)
[2020-02-19] MEDS: ESCITALOPRAM OXALATE 10 MG TABLET PO SCH (08:27)
[2020-02-19] MEDS: GABAPENTIN 400 MG CAPSULE PO SCH ×3 (08:27→20:34)
[2020-02-19] MEDS: HYPROMELLOSE 0.5% 15 ML OPHTHALMIC SOLUTION OU PRN (08:30)
[2020-02-19] MEDS: NICOTINE 14 MG/24 HOUR PATCH TD SCH (09:00)
[2020-02-19 16:25] LABS: GLUCOMETER DEV NAME(LOC) 3E.I 2; GLUCOSE,POINT OF CARE 322 MG/DL (70-110)
[2020-02-19 16:27] VITALS: BP 101/57
[2020-02-20 02:25] VITALS: BP 108/65
[2020-02-20] MEDS: TraMADol HCL 50 MG TABLET PO PRN (02:37)
[2020-02-20 05:38] LABS: GLUCOMETER DEV NAME(LOC) 3E.I 2; GLUCOSE,POINT OF CARE 239 MG/DL (70-110)
[2020-02-20] MEDS: INSULIN LISPRO 100 UNITS/ML SQ PRN ×2 (07:04→17:37)
[2020-02-20] MEDS: GlipiZIDE 5 MG TABLET PO SCH (07:04)
[2020-02-20] MEDS: MetFORMIN HCL 500 MG TABLET PO SCH ×2 (07:04→16:42)
[2020-02-20] MEDS: IBUPROFEN 400 MG TABLET PO PRN (07:20)
[2020-02-20 08:20] VITALS: BP 146/85
[2020-02-20] MEDS: OMEPRAZOLE 20 MG CAPSULE PO SCH (08:28)
[2020-02-20] MEDS: AmLODIPine BESYLATE 5 MG TABLET PO SCH (08:28)
[2020-02-20] MEDS: LORazepam 2 MG TABLET PO PRN ×2 (08:28→16:03)
[2020-02-20] MEDS: ESCITALOPRAM OXALATE 10 MG TABLET PO SCH (08:28)
[2020-02-20] MEDS: QUEtiapine FUMARATE 200 MG TABLET PO SCH ×2 (08:29→21:55)
[2020-02-20] MEDS: GABAPENTIN 400 MG CAPSULE PO SCH ×3 (08:29→21:55)
[2020-02-20] MEDS: NICOTINE 14 MG/24 HOUR PATCH TD SCH (09:00)
[2020-02-20 17:02] VITALS: BP 122/72
[2020-02-20 17:29] LABS: GLUCOMETER DEV NAME(LOC) 3EX.; GLUCOSE,POINT OF CARE 274 MG/DL (70-110)
[2020-02-21 05:59] LABS: GLUCOMETER DEV NAME(LOC) 3EX.; GLUCOSE,POINT OF CARE 219 MG/DL (70-110)
[2020-02-21] MEDS: MetFORMIN HCL 500 MG TABLET PO SCH ×2 (06:53→16:38)
[2020-02-21] MEDS: GlipiZIDE 5 MG TABLET PO SCH (06:53)
[2020-02-21] MEDS: INSULIN LISPRO 100 UNITS/ML SQ PRN ×2 (06:54→17:36)
[2020-02-21 08:00] VITALS: BP 141/81
[2020-02-21] MEDS: ESCITALOPRAM OXALATE 10 MG TABLET PO SCH (08:31)
[2020-02-21] MEDS: AmLODIPine BESYLATE 5 MG TABLET PO SCH (08:32)
[2020-02-21] MEDS: QUEtiapine FUMARATE 200 MG TABLET PO SCH ×2 (08:32→20:19)
[2020-02-21] MEDS: GABAPENTIN 400 MG CAPSULE PO SCH ×3 (08:32→20:19)
[2020-02-21] MEDS: OMEPRAZOLE 20 MG CAPSULE PO SCH (08:32)
[2020-02-21] MEDS: NICOTINE 14 MG/24 HOUR PATCH TD SCH (08:35)
[2020-02-21 10:26] VITALS: BP 141/73
[2020-02-21] MEDS: TraMADol HCL 50 MG TABLET PO PRN (10:26)
[2020-02-21 16:12] VITALS: BP 130/83
[2020-02-21] MEDS: IBUPROFEN 400 MG TABLET PO PRN (16:12)
[2020-02-21 17:32] LABS: GLUCOMETER DEV NAME(LOC) 3EX.; GLUCOSE,POINT OF CARE 309 MG/DL (70-110)
[2020-02-22 00:55] VITALS: BP 114/75
[2020-02-22] MEDS: TraMADol HCL 50 MG TABLET PO PRN ×2 (00:55→10:50)
[2020-02-22 05:34] LABS: GLUCOMETER DEV NAME(LOC) 3EX.; GLUCOSE,POINT OF CARE 210 MG/DL (70-110)
[2020-02-22] MEDS: GlipiZIDE 5 MG TABLET PO SCH (07:11)
[2020-02-22] MEDS: MetFORMIN HCL 500 MG TABLET PO SCH ×2 (07:11→16:35)
[2020-02-22] MEDS: INSULIN LISPRO 100 UNITS/ML SQ PRN ×2 (07:12→17:31)
[2020-02-22 08:00] VITALS: BP 121/68
[2020-02-22] MEDS: GABAPENTIN 400 MG CAPSULE PO SCH ×3 (08:22→20:01)
[2020-02-22] MEDS: AmLODIPine BESYLATE 5 MG TABLET PO SCH (08:22)
[2020-02-22] MEDS: QUEtiapine FUMARATE 200 MG TABLET PO SCH ×2 (08:22→20:00)
[2020-02-22] MEDS: LORazepam 2 MG TABLET PO PRN ×2 (08:22→13:31)
[2020-02-22] MEDS: ESCITALOPRAM OXALATE 10 MG TABLET PO SCH (08:22)
[2020-02-22] MEDS: OMEPRAZOLE 20 MG CAPSULE PO SCH (08:22)
[2020-02-22] MEDS: NICOTINE 14 MG/24 HOUR PATCH TD SCH (09:00)
[2020-02-22 16:13] VITALS: BP 134/78
[2020-02-22] MEDS: IBUPROFEN 400 MG TABLET PO PRN (16:58)
[2020-02-22 17:15] LABS: GLUCOMETER DEV NAME(LOC) 3EX.; GLUCOSE,POINT OF CARE 290 MG/DL (70-110)
[2020-02-23 03:40] VITALS: BP 132/79
[2020-02-23] MEDS: TraMADol HCL 50 MG TABLET PO PRN ×2 (03:44→11:45)
[2020-02-23 06:12] LABS: GLUCOMETER DEV NAME(LOC) 3EX.; GLUCOSE,POINT OF CARE 258 MG/DL (70-110)
[2020-02-23] MEDS: MetFORMIN HCL 500 MG TABLET PO SCH ×2 (06:54→16:47)
[2020-02-23] MEDS: GlipiZIDE 5 MG TABLET PO SCH (06:54)
[2020-02-23] MEDS: INSULIN LISPRO 100 UNITS/ML SQ PRN ×2 (06:56→17:28)
[2020-02-23] MEDS: GABAPENTIN 400 MG CAPSULE PO SCH ×3 (08:16→20:55)
[2020-02-23] MEDS: QUEtiapine FUMARATE 200 MG TABLET PO SCH ×2 (08:16→20:55)
[2020-02-23] MEDS: ESCITALOPRAM OXALATE 10 MG TABLET PO SCH (08:16)
[2020-02-23] MEDS: AmLODIPine BESYLATE 5 MG TABLET PO SCH (08:17)
[2020-02-23] MEDS: NICOTINE 14 MG/24 HOUR PATCH TD SCH (08:17)
[2020-02-23] MEDS: OMEPRAZOLE 20 MG CAPSULE PO SCH (08:18)
[2020-02-23 09:03] VITALS: BP 151/83
[2020-02-23] MEDS: IBUPROFEN 400 MG TABLET PO PRN ×2 (09:06→17:36)
[2020-02-23] MEDS: LORazepam 2 MG TABLET PO PRN ×2 (09:06→19:02)
[2020-02-23 16:30] VITALS: BP 138/72
[2020-02-23 17:05] LABS: GLUCOMETER DEV NAME(LOC) 3EX.; GLUCOSE,POINT OF CARE 360 MG/DL (70-110)
[2020-02-23] MEDS: ACETAMINOPHEN 325 MG TABLET PO PRN (18:57)
[2020-02-24 04:25] VITALS: BP 152/83
[2020-02-24] MEDS: TraMADol HCL 50 MG TABLET PO PRN (04:25)
[2020-02-24 05:49] LABS: GLUCOMETER DEV NAME(LOC) 3EX.; GLUCOSE,POINT OF CARE 232 MG/DL (70-110)
[2020-02-24] MEDS: GlipiZIDE 5 MG TABLET PO SCH (06:53)
[2020-02-24] MEDS: MetFORMIN HCL 500 MG TABLET PO SCH ×2 (06:53→16:37)
[2020-02-24] MEDS: INSULIN LISPRO 100 UNITS/ML SQ PRN ×2 (07:33→17:30)
[2020-02-24] MEDS: LORazepam 2 MG TABLET PO PRN ×3 (08:08→18:13)
[2020-02-24] MEDS: QUEtiapine FUMARATE 200 MG TABLET PO SCH ×2 (08:08→20:49)
[2020-02-24] MEDS: GABAPENTIN 400 MG CAPSULE PO SCH ×3 (08:08→20:49)
[2020-02-24] MEDS: ESCITALOPRAM OXALATE 10 MG TABLET PO SCH (08:08)
[2020-02-24] MEDS: AmLODIPine BESYLATE 5 MG TABLET PO SCH (08:08)
[2020-02-24] MEDS: IBUPROFEN 400 MG TABLET PO PRN ×2 (08:09→16:37)
[2020-02-24] MEDS: ACETAMINOPHEN 325 MG TABLET PO PRN ×2 (08:09→21:20)
[2020-02-24] MEDS: OMEPRAZOLE 20 MG CAPSULE PO SCH (08:09)
[2020-02-24] MEDS: NICOTINE 14 MG/24 HOUR PATCH TD SCH (09:00)
[2020-02-24 16:13] VITALS: BP 120/89
[2020-02-24 16:26] LABS: GLUCOMETER DEV NAME(LOC) 3EX.; GLUCOSE,POINT OF CARE 369 MG/DL (70-110)
[2020-02-24 16:34] VITALS: BP 120/89
[2020-02-24 21:21] VITALS: BP 139/86
[2020-02-24] MEDS: ZOLPIDEM TARTRATE 10 MG TABLET PO PRN (21:24)
[2020-02-25 03:45] VITALS: BP 120/70
[2020-02-25] MEDS: TraMADol HCL 50 MG TABLET PO PRN ×2 (03:55→18:48)
[2020-02-25 06:12] LABS: GLUCOMETER DEV NAME(LOC) 3EX.; GLUCOSE,POINT OF CARE 209 MG/DL (70-110)
[2020-02-25] MEDS: MetFORMIN HCL 500 MG TABLET PO SCH ×2 (06:39→16:35)
[2020-02-25] MEDS: GlipiZIDE 5 MG TABLET PO SCH (06:40)
[2020-02-25] MEDS: IBUPROFEN 400 MG TABLET PO PRN ×2 (06:53→14:55)
[2020-02-25] MEDS: INSULIN LISPRO 100 UNITS/ML SQ PRN ×2 (06:59→17:18)
[2020-02-25] MEDS: GABAPENTIN 400 MG CAPSULE PO SCH ×3 (08:17→20:54)
[2020-02-25] MEDS: ESCITALOPRAM OXALATE 10 MG TABLET PO SCH (08:17)
[2020-02-25] MEDS: AmLODIPine BESYLATE 5 MG TABLET PO SCH (08:18)
[2020-02-25] MEDS: QUEtiapine FUMARATE 200 MG TABLET PO SCH ×2 (08:18→20:54)
[2020-02-25] MEDS: OMEPRAZOLE 20 MG CAPSULE PO SCH (08:19)
[2020-02-25] MEDS: NICOTINE 14 MG/24 HOUR PATCH TD SCH (08:22)
[2020-02-25 08:30] VITALS: BP 148/85
[2020-02-25 14:55] VITALS: BP 147/75
[2020-02-25 16:01] VITALS: BP 147/85
[2020-02-25 16:51] LABS: GLUCOMETER DEV NAME(LOC) 3EX.; GLUCOSE,POINT OF CARE 343 MG/DL (70-110)
[2020-02-25 18:48] VITALS: BP 134/79
[2020-02-26 07:02] LABS: GLUCOMETER DEV NAME(LOC) 3EX.; GLUCOSE,POINT OF CARE 213 MG/DL (70-110)
[2020-02-26] MEDS: MetFORMIN HCL 500 MG TABLET PO SCH ×2 (07:08→16:32)
[2020-02-26] MEDS: GlipiZIDE 5 MG TABLET PO SCH (07:09)
[2020-02-26 07:10] VITALS: BP 145/80
[2020-02-26] MEDS: INSULIN LISPRO 100 UNITS/ML SQ PRN ×2 (07:11→17:28)
[2020-02-26] MEDS: TraMADol HCL 50 MG TABLET PO PRN (07:12)
[2020-02-26 08:00] VITALS: BP 146/84
[2020-02-26] MEDS: GABAPENTIN 400 MG CAPSULE PO SCH ×3 (08:47→20:33)
[2020-02-26] MEDS: QUEtiapine FUMARATE 200 MG TABLET PO SCH ×2 (08:47→20:33)
[2020-02-26] MEDS: AmLODIPine BESYLATE 5 MG TABLET PO SCH (08:48)
[2020-02-26] MEDS: ESCITALOPRAM OXALATE 10 MG TABLET PO SCH (08:48)
[2020-02-26] MEDS: OMEPRAZOLE 20 MG CAPSULE PO SCH (08:48)
[2020-02-26] MEDS: NICOTINE 14 MG/24 HOUR PATCH TD SCH (08:52)
[2020-02-26] MEDS: IBUPROFEN 400 MG TABLET PO PRN (10:59)
[2020-02-26] MEDS ORDERED: KETOROLAC TROMETHAMINE 15 MG/ML VIAL IM ONE (13:45)
[2020-02-26 16:52] LABS: GLUCOMETER DEV NAME(LOC) 3EX.; GLUCOSE,POINT OF CARE 408 MG/DL (70-110)
[2020-02-26 17:39] LABS: GLUCOMETER DEV NAME(LOC) 3EX.; GLUCOSE,POINT OF CARE 341 MG/DL (70-110)
[2020-02-26 18:00] VITALS: BP 123/80
[2020-02-27 04:46] VITALS: BP 156/85
[2020-02-27] MEDS: TraMADol HCL 50 MG TABLET PO PRN ×2 (04:46→20:58)
[2020-02-27 05:02] LABS: GLUCOMETER DEV NAME(LOC) 3EX.; GLUCOSE,POINT OF CARE 193 MG/DL (70-110)
[2020-02-27] MEDS: GlipiZIDE 5 MG TABLET PO SCH (06:58)
[2020-02-27] MEDS: MetFORMIN HCL 500 MG TABLET PO SCH ×2 (06:58→16:39)
[2020-02-27] MEDS: GABAPENTIN 400 MG CAPSULE PO SCH ×3 (08:12→20:54)
[2020-02-27] MEDS: ESCITALOPRAM OXALATE 10 MG TABLET PO SCH (08:12)
[2020-02-27] MEDS: LORazepam 2 MG TABLET PO PRN (08:12)
[2020-02-27] MEDS: OMEPRAZOLE 20 MG CAPSULE PO SCH (08:12)
[2020-02-27] MEDS: QUEtiapine FUMARATE 200 MG TABLET PO SCH ×2 (08:12→20:54)
[2020-02-27] MEDS: AmLODIPine BESYLATE 5 MG TABLET PO SCH (08:13)
[2020-02-27] MEDS: NICOTINE 14 MG/24 HOUR PATCH TD SCH (09:00)
[2020-02-27 09:56] VITALS: BP 114/70
[2020-02-27 16:08] VITALS: BP 132/69
[2020-02-27 17:24] LABS: GLUCOMETER DEV NAME(LOC) 3EX.; GLUCOSE,POINT OF CARE 259 MG/DL (70-110)
[2020-02-27] MEDS ORDERED: DEXTROSE 50%-WATER 25 GM/50 ML SYRINGE IVP PRN (18:00)
[2020-02-27] MEDS: INSULIN LISPRO 100 UNITS/ML SQ PRN (18:04)
[2020-02-28 06:05] VITALS: BP 127/73
[2020-02-28] MEDS: TraMADol HCL 50 MG TABLET PO PRN ×2 (06:34→16:07)
[2020-02-28] MEDS: MetFORMIN HCL 500 MG TABLET PO SCH ×2 (06:34→17:07)
[2020-02-28] MEDS: GlipiZIDE 5 MG TABLET PO SCH (06:35)
[2020-02-28 06:43] LABS: GLUCOMETER DEV NAME(LOC) 3EX.; GLUCOSE,POINT OF CARE 192 MG/DL (70-110)
[2020-02-28] MEDS: INSULIN LISPRO 100 UNITS/ML SQ PRN (06:50)
[2020-02-28 07:17] LABS: ANION GAP 4 mmol/L (8-16); CALCIUM, TOTAL 8.8 mg/dL (8.8-10.5); CARBON DIOXIDE 31 mmol/L (22-29); CHLORIDE 103 mmol/L (98-107); CREATININE 0.75 mg/dL (0.60-1.30); GLOMERULAR FILTR. RATE CALC > 60 mL/min (>60); GLUCOSE,RANDOM 213 mg/dL (70-110); POTASSIUM 4.4 mmol/L (3.5-5.1); SODIUM SERUM 138 mmol/L (136-145); UREA NITROGEN, BLOOD 27 mg/dL (7-18)
[2020-02-28] MEDS: OMEPRAZOLE 20 MG CAPSULE PO SCH (08:23)
[2020-02-28] MEDS: AmLODIPine BESYLATE 5 MG TABLET PO SCH (08:23)
[2020-02-28] MEDS: GABAPENTIN 400 MG CAPSULE PO SCH ×3 (08:23→20:51)
[2020-02-28] MEDS: LORazepam 2 MG TABLET PO PRN (08:23)
[2020-02-28] MEDS: QUEtiapine FUMARATE 200 MG TABLET PO SCH ×2 (08:23→20:51)
[2020-02-28] MEDS: ESCITALOPRAM OXALATE 10 MG TABLET PO SCH (08:24)
[2020-02-28] MEDS: NICOTINE 14 MG/24 HOUR PATCH TD SCH (08:24)
[2020-02-28 08:41] VITALS: BP 126/71
[2020-02-29 04:38] VITALS: BP 148/81
[2020-02-29] MEDS: TraMADol HCL 50 MG TABLET PO PRN (04:38)
[2020-02-29 06:19] LABS: GLUCOMETER DEV NAME(LOC) 3EX.; GLUCOSE,POINT OF CARE 238 MG/DL (70-110)
[2020-02-29] MEDS: INSULIN LISPRO 100 UNITS/ML SQ PRN ×2 (06:50→17:45)
[2020-02-29] MEDS: MetFORMIN HCL 500 MG TABLET PO SCH ×2 (06:54→17:43)
[2020-02-29] MEDS: GlipiZIDE 5 MG TABLET PO SCH (06:54)
[2020-02-29] MEDS: QUEtiapine FUMARATE 200 MG TABLET PO SCH ×2 (08:23→20:37)
[2020-02-29] MEDS: AmLODIPine BESYLATE 5 MG TABLET PO SCH (08:23)
[2020-02-29] MEDS: LORazepam 2 MG TABLET PO PRN (08:23)
[2020-02-29] MEDS: ESCITALOPRAM OXALATE 10 MG TABLET PO SCH (08:23)
[2020-02-29] MEDS: OMEPRAZOLE 20 MG CAPSULE PO SCH (08:23)
[2020-02-29] MEDS: GABAPENTIN 400 MG CAPSULE PO SCH ×3 (08:25→20:37)
[2020-02-29 08:29] VITALS: BP 132/83
[2020-02-29 16:09] VITALS: BP 139/79
[2020-02-29 16:42] LABS: GLUCOMETER DEV NAME(LOC) 3EX.; GLUCOSE,POINT OF CARE 190 MG/DL (70-110)
[2020-02-29 20:30] VITALS: BP 145/80
[2020-02-29] MEDS: IBUPROFEN 400 MG TABLET PO PRN (20:49)
[2020-03-01 03:50] VITALS: BP 122/73
[2020-03-01] MEDS: TraMADol HCL 50 MG TABLET PO PRN (03:53)
[2020-03-01 05:59] LABS: GLUCOMETER DEV NAME(LOC) 3EX.; GLUCOSE,POINT OF CARE 211 MG/DL (70-110)
[2020-03-01] MEDS: MetFORMIN HCL 500 MG TABLET PO SCH ×2 (06:57→16:38)
[2020-03-01] MEDS: GlipiZIDE 5 MG TABLET PO SCH (06:57)
[2020-03-01] MEDS: INSULIN LISPRO 100 UNITS/ML SQ PRN ×2 (06:57→17:21)
[2020-03-01] MEDS: ESCITALOPRAM OXALATE 10 MG TABLET PO SCH (07:49)
[2020-03-01] MEDS: GABAPENTIN 400 MG CAPSULE PO SCH ×3 (07:50→20:24)
[2020-03-01] MEDS: QUEtiapine FUMARATE 200 MG TABLET PO SCH ×2 (07:50→20:24)
[2020-03-01] MEDS: LORazepam 2 MG TABLET PO PRN (07:51)
[2020-03-01] MEDS: OMEPRAZOLE 20 MG CAPSULE PO SCH (07:51)
[2020-03-01] MEDS: AmLODIPine BESYLATE 5 MG TABLET PO SCH (07:51)
[2020-03-01 08:53] VITALS: BP 115/66
[2020-03-01 16:47] VITALS: BP 132/75
[2020-03-01 16:47] LABS: GLUCOMETER DEV NAME(LOC) 3EX.; GLUCOSE,POINT OF CARE 293 MG/DL (70-110)
[2020-03-01] MEDS: IBUPROFEN 400 MG TABLET PO PRN (16:58)
[2020-03-01] MEDS ORDERED: DEXTROSE 50%-WATER 25 GM/50 ML SYRINGE IVP PRN (17:00)
[2020-03-01 20:42] LABS: GLUCOMETER DEV NAME(LOC) 3EX.; GLUCOSE,POINT OF CARE 119 MG/DL (70-110)
[2020-03-02] MEDS: IBUPROFEN 400 MG TABLET PO PRN ×2 (06:05→14:22)
[2020-03-02 06:22] LABS: GLUCOMETER DEV NAME(LOC) 3EX.; GLUCOSE,POINT OF CARE 155 MG/DL (70-110)
[2020-03-02] MEDS: GlipiZIDE 5 MG TABLET PO SCH (07:00)
[2020-03-02] MEDS: MetFORMIN HCL 500 MG TABLET PO SCH ×2 (07:00→16:55)
[2020-03-02 08:28] VITALS: BP 124/85
[2020-03-02] MEDS: OMEPRAZOLE 20 MG CAPSULE PO SCH (08:55)
[2020-03-02] MEDS: AmLODIPine BESYLATE 5 MG TABLET PO SCH (08:56)
[2020-03-02] MEDS: GABAPENTIN 400 MG CAPSULE PO SCH ×3 (08:56→20:11)
[2020-03-02] MEDS: QUEtiapine FUMARATE 200 MG TABLET PO SCH ×2 (08:56→20:11)
[2020-03-02] MEDS: ESCITALOPRAM OXALATE 10 MG TABLET PO SCH (09:00)
[2020-03-02 11:33] LABS: GLUCOMETER DEV NAME(LOC) 3EX.; GLUCOSE,POINT OF CARE 183 MG/DL (70-110)
[2020-03-02] MEDS: INSULIN LISPRO 100 UNITS/ML SQ PRN ×3 (12:34→20:22)
[2020-03-02 16:06] VITALS: BP 136/85
[2020-03-02 17:20] LABS: GLUCOMETER DEV NAME(LOC) 3EX.; GLUCOSE,POINT OF CARE 200 MG/DL (70-110)
[2020-03-02 18:59] VITALS: BP 142/79
[2020-03-02] MEDS: TraMADol HCL 50 MG TABLET PO PRN (18:59)
[2020-03-02 20:53] LABS: GLUCOMETER DEV NAME(LOC) 3EX.; GLUCOSE,POINT OF CARE 218 MG/DL (70-110)
[2020-03-03 06:10] LABS: GLUCOMETER DEV NAME(LOC) 3EX.; GLUCOSE,POINT OF CARE 227 MG/DL (70-110)
[2020-03-03 06:35] VITALS: BP 148/82
[2020-03-03] MEDS: INSULIN LISPRO 100 UNITS/ML SQ PRN ×2 (06:36→17:18)
[2020-03-03] MEDS: TraMADol HCL 50 MG TABLET PO PRN (06:36)
[2020-03-03] MEDS: GlipiZIDE 5 MG TABLET PO SCH (06:36)
[2020-03-03] MEDS: MetFORMIN HCL 500 MG TABLET PO SCH ×2 (06:41→16:32)
[2020-03-03 08:46] VITALS: BP 158/85
[2020-03-03] MEDS: AmLODIPine BESYLATE 5 MG TABLET PO SCH (08:47)
[2020-03-03] MEDS: QUEtiapine FUMARATE 200 MG TABLET PO SCH ×2 (08:47→20:09)
[2020-03-03] MEDS: ESCITALOPRAM OXALATE 10 MG TABLET PO SCH (08:47)
[2020-03-03] MEDS: GABAPENTIN 400 MG CAPSULE PO SCH ×3 (08:47→20:09)
[2020-03-03] MEDS: OMEPRAZOLE 20 MG CAPSULE PO SCH (08:47)
[2020-03-03 11:47] LABS: GLUCOMETER DEV NAME(LOC) 3EX.; GLUCOSE,POINT OF CARE 110 MG/DL (70-110)
[2020-03-03 16:00] VITALS: BP 130/80
[2020-03-03 16:49] LABS: GLUCOMETER DEV NAME(LOC) 3EX.; GLUCOSE,POINT OF CARE 183 MG/DL (70-110)
[2020-03-03 20:23] LABS: GLUCOMETER DEV NAME(LOC) 3EX.; GLUCOSE,POINT OF CARE 100 MG/DL (70-110)
[2020-03-04 05:26] LABS: GLUCOMETER DEV NAME(LOC) 3EX.; GLUCOSE,POINT OF CARE 149 MG/DL (70-110)
[2020-03-04] MEDS: MetFORMIN HCL 500 MG TABLET PO SCH ×2 (07:02→16:51)
[2020-03-04] MEDS: INSULIN LISPRO 100 UNITS/ML SQ PRN ×4 (07:02→21:03)
[2020-03-04] MEDS: GlipiZIDE 5 MG TABLET PO SCH (07:02)
[2020-03-04 08:20] VITALS: BP 129/75
[2020-03-04] MEDS: AmLODIPine BESYLATE 5 MG TABLET PO SCH (09:20)
[2020-03-04] MEDS: GABAPENTIN 400 MG CAPSULE PO SCH ×3 (09:20→20:59)
[2020-03-04] MEDS: QUEtiapine FUMARATE 200 MG TABLET PO SCH ×2 (09:20→21:00)
[2020-03-04] MEDS: OMEPRAZOLE 20 MG CAPSULE PO SCH (09:20)
[2020-03-04] MEDS: ESCITALOPRAM OXALATE 10 MG TABLET PO SCH (09:20)
[2020-03-04 16:13] VITALS: BP 123/86
[2020-03-04 16:17] LABS: GLUCOMETER DEV NAME(LOC) 3EX.; GLUCOSE,POINT OF CARE 152 MG/DL (70-110)
[2020-03-04 16:42] LABS: GLUCOMETER DEV NAME(LOC) 3EX.; GLUCOSE,POINT OF CARE 129 MG/DL (70-110)
[2020-03-04 20:37] LABS: GLUCOMETER DEV NAME(LOC) 3E.I 2; GLUCOSE,POINT OF CARE 149 MG/DL (70-110)
[2020-03-05 04:00] VITALS: BP 112/62
[2020-03-05] MEDS: TraMADol HCL 50 MG TABLET PO PRN (04:02)
[2020-03-05 06:15] LABS: GLUCOMETER DEV NAME(LOC) 3E.I 2; GLUCOSE,POINT OF CARE 202 MG/DL (70-110)
[2020-03-05] MEDS: MetFORMIN HCL 500 MG TABLET PO SCH (06:41)
[2020-03-05] MEDS: GlipiZIDE 5 MG TABLET PO SCH (06:41)
[2020-03-05] MEDS: INSULIN LISPRO 100 UNITS/ML SQ PRN ×2 (06:43→11:17)
[2020-03-05] MEDS: QUEtiapine FUMARATE 200 MG TABLET PO SCH (08:22)
[2020-03-05] MEDS: ESCITALOPRAM OXALATE 10 MG TABLET PO SCH (08:22)
[2020-03-05] MEDS: AmLODIPine BESYLATE 5 MG TABLET PO SCH (08:22)
[2020-03-05] MEDS: GABAPENTIN 400 MG CAPSULE PO SCH (08:22)
[2020-03-05] MEDS: OMEPRAZOLE 20 MG CAPSULE PO SCH (08:22)
[2020-03-05 09:04] VITALS: BP 124/77
[2020-03-05] MEDS ORDERED: ESCI-8 PO (11:11)
[2020-03-05] MEDS ORDERED: GABA-1201 PO (11:12)
[2020-03-05] MEDS ORDERED: QUET200T PO (11:13)
[2020-03-05] MEDS ORDERED: LORA-1001 PO (11:14)
[2020-03-05] MEDS ORDERED: ZOLP10TA8 PO (11:18)
[2020-03-05] MEDS ORDERED: AMLO-257 PO (11:21)
[2020-03-05] MEDS ORDERED: GLIP5 PO (11:24)
[2020-03-05] MEDS ORDERED: OMEP20 PO (11:24)
[2020-03-05] MEDS ORDERED: METF-960 PO (11:24)
[2020-03-05 11:25] LABS: GLUCOMETER DEV NAME(LOC) 3E.I 2; GLUCOSE,POINT OF CARE 137 MG/DL (70-110)
[2020-03-05] MEDS ORDERED: TRAM50TA4 PO (11:25)
[2020-03-05] MEDS ORDERED: IBUP-1506 PO (11:25)
== END 2020-03-05 13:35 | DRG 750 ==
LOC: EMS 11:03 → 3EI 17:52 → 3EX 02-19 19:56 → 3EI 03-04 21:26
DX: F25.1 Schizoaffective disorder, depressive type (principal); F14.10 Cocaine abuse, uncomplicated; F12.10 Cannabis abuse, uncomplicated; E11.65 Type 2 diabetes mellitus with hyperglycemia; E87.1 Hypo-osmolality and hyponatremia; G40.909 Epilepsy, unspecified, not intractable, without status epilepticus; G89.29 Other chronic pain; K59.00 Constipation, unspecified; F41.9 Anxiety disorder, unspecified; I10 Essential (primary) hypertension; K21.9 Gastro-esophageal reflux disease without esophagitis; F17.210 Nicotine dependence, cigarettes, uncomplicated; M54.9 Dorsalgia, unspecified; Z20.828 Contact with and (suspected) exposure to other viral communicable diseases; R45.851 Suicidal ideations; Z88.8 Allergy status to other drugs, medicaments and biological substances; Z79.899 Other long term (current) drug therapy; Z63.8 Other specified problems related to primary support group; Z91.5 Personal history of self-harm; Z79.84 Long term (current) use of oral hypoglycemic drugs
CPT/HCPCS: 82948; 87081; 87426; 97110; 97161; G0378; G0480; J1200; J1815; J1885; J2060; J3490

== ENCOUNTER 2023-01-22 18:21 | Emergency (ER) | payer MEDICAID ==
[~2023-01-22] VITALS: Ht 172.7 cm; Wt 78.3 kg
[~2023-01-22 18:21] MED LIST changes: +AMLO-257 PO; -DOCU-275 PO; +ESCI-8 PO; -GABA-533 PO; +GLIP5TAB12 PO; +IBUP-1506 PO; -IBUP-2070 PO; +LORA-1001 PO; +METF-1211 PO; -METF-960 PO; +OMEP20 PO; -QUET100T33 PO; +QUET200T PO; -QUET25TA PO; +TRAM-559 PO; +ZOLP-162 PO
[2023-01-22 20:13] VITALS: TEMP 98.5
[2023-01-22] MEDS ORDERED: SODIUM CHLORIDE 0.9% 1,000 ML IV ONE (20:30)
[2023-01-22 21:48] LABS: BASOPHILS % (AUTO) 0.5 % (0.0-2.0); EOSINOPHILS % (AUTO) 0.4 % (1.0-6.0); HEMATOCRIT 41.4 % (41-53); HEMOGLOBIN 13.3 g/dL (13.5-17.5); LYMPHOCYTES # (AUTO) 2.4 K/uL (1.0-4.8); LYMPHOCYTES % (AUTO) 25.6 % (22.0-44.0); MEAN CORPUSCULAR HEMOGLOBIN 27.7 pg (26.0-34.0); MEAN CORPUSCULAR HGB CONC 32.2 G/dL (31.0-37.0); MEAN CORPUSCULAR VOLUME 86 fL (80-100); MONOCYTES # (AUTO) 0.6 K/uL (0.1-1.0); MONOCYTES % (AUTO) 6.7 % (2.0-9.0); NEUTROPHILS # (AUTO) 6.2 K/uL (1.8-7.7); NEUTROPHILS % (AUTO) 66.8 % (40.0-70.0); PLATELET COUNT (AUTO) 231 K/uL (150-450); RED BLOOD CELL COUNT(AUTO) 4.81 MIL/uL (4.50-5.90); RED CELL DISTRIBUTION WIDTH 13.2 % (11.5-14.5); WHITE BLOOD COUNT (AUTO) 9.2 K/uL (4.5-11.0)
[2023-01-22 21:50] LABS: ANION GAP 8 mmol/L (8-16); CARBON DIOXIDE 26 mmol/L (22-29); CHLORIDE 101 mmol/L (98-107); CREATININE 0.78 mg/dL (0.60-1.30); GLOMERULAR FILTR. RATE CALC > 60 mL/min (>60); GLUCOSE,RANDOM 174 mg/dL (70-110); POTASSIUM 3.9 mmol/L (3.5-5.1); SODIUM SERUM 135 mmol/L (136-145); UREA NITROGEN, BLOOD 17 mg/dL (7-18)
[2023-01-22 21:56] LABS: ALANINE AMINOTRANSFERASE 50 U/L (12-78); ALBUMIN 3.3 g/dL (3.4-5.0); ALKALINE PHOSPHATASE 67 U/L (46-116); ASPARTATE AMINOTRANSFERASE 81 U/L (15-37); BILIRUBIN,TOTAL 0.6 mg/dL (0.1-1.0); TOTAL PROTEIN, SERUM 6.1 g/dL (6.4-8.2)
[2023-01-22 22:02] LABS: ALCOHOL, BLOOD (SERUM) < 3 mg/dL (0-10)
[2023-01-23 01:00] VITALS: BP 119/71; PULSE 61; RESP 17
[2023-01-23 01:55] LABS: APPEARANCE,URINE CLEAR (CLEAR); BILIRUBIN,URINE NEGATIVE (NEGATIVE); COLOR,URINE LIGHT YELLOW (YELLOW); GLUCOSE, URINE (UA) >=1000 mg/dL (NEGATIVE); KETONES,URINE NEGATIVE (NEGATIVE); LEUKOCYTE ESTERASE ,URINE NEGATIVE (NEGATIVE); NITRATE,URINE NEGATIVE (NEGATIVE); OCCULT BLOOD,URINE NEGATIVE (NEGATIVE); PH,URINE 5.5 (5.0-8.0); PROTEIN,URINE TRACE mg/dL (NEGATIVE); SPECIFIC GRAVITIY, URINE 1.016 (1.003-1.030); UROBILINOGEN,URINE <=1.0 mg/dL (<=1.0)
[2023-01-23 02:01] LABS: PH,URINE DRUG SCREEN 5.5 (5.0-8.0)
[2023-01-23 02:02] LABS: AMPHET/METH SCREEN,URINE NEGATIVE (NEGATIVE); BARBITURATE SCREEN, URINE NEGATIVE (NEGATIVE); BENZODIAZEPINES SCREEN,URINE NEGATIVE (NEGATIVE); CANNABINOID SCREEN,URINE POSITIVE (NEGATIVE); COCAINE SCREEN,URINE POSITIVE (NEGATIVE); METHADONE SCREEN, URINE NEGATIVE (NEGATIVE); OPIATE SCREEN,URINE NEGATIVE (NEGATIVE); PHENCYCLIDINE SCREEN,URINE NEGATIVE (NEGATIVE)
[2023-01-23 02:06] LABS: ALCOHOL, URINE DRUG SCREEN NEGATIVE (NEGATIVE)
[2023-01-23 02:21] LABS: BACTERIA,URINE None Seen /HPF (None Seen); RBC,URINE None Seen /HPF (0-2); SQUAMOUS EPITHELIAL CELL,UR None Seen /LPF (None Seen); WBC,URINE None Seen /HPF (0-5)
[2023-01-23] MEDS ORDERED: NALO4SPR NASAL (03:47)
== END 2023-01-23 07:49 | disposition home or self-care (01) ==
LOC: EMS 18:21
DX: T50.991A Poisoning by other drugs, medicaments and biological substances, accidental (unintentional), initial encounter (principal); F41.9 Anxiety disorder, unspecified; F32.A Depression, unspecified; E11.9 Type 2 diabetes mellitus without complications; I10 Essential (primary) hypertension; F17.210 Nicotine dependence, cigarettes, uncomplicated; F12.90 Cannabis use, unspecified, uncomplicated; F15.90 Other stimulant use, unspecified, uncomplicated; F11.90 Opioid use, unspecified, uncomplicated; Z88.8 Allergy status to other drugs, medicaments and biological substances; Y92.89 Other specified places as the place of occurrence of the external cause
CPT/HCPCS: 99284; 96360; 80053; 81001; 85025; 36415; 80307; 70450; J7030; G0480